=== PATIENT | female | born 1990 | race Caucasian/White ===

== ENCOUNTER → 2018-09-02 10:22 | Outpatient (CLI) | payer MEDICAID, SELFPAY ==
[2018-09-02 09:07] VITALS: BMI 32.4
[2018-09-02 11:18] LABS: Absolute Lymphocyte Count 1.47 X10^3/ul (0.83-4.51); Absolute Neutrophil Count 5.7 X10^3/uL (2.0-7.7); Basophil# 0.03 X10^3/uL; Basophil% 0.4 % (0-1); Eosinophils% 1.3 % (0-5); Hematocrit 38.1 % (37-47); Hemoglobin 12.9 g/dl (12.0-15.0); Lymphocyte # 1.47 X10^3/ul (4.0); Lymphocyte % 19.3 % (19-41); Mean Corp Hgb Conc 33.9 g/gl (32-36); Mean Corpuscular Hgb 26.1 pg (27.0-32.0); Mean Platelet Vol. 12.5 fl (6.2-12.0); Monocyte# 0.35 X10^3/uL; Monocyte% 4.6 % (0-10); Neutrophil # 5.65 X10^3/uL (2.7-7.7); Neutrophil % 74.3 % (47-70); POSITIVE COUNT NO; POSITIVE DIFFERENTIAL NO; POSITIVE MORPHOLOGY NO; Platelet Count 215 K/mm3 (150-450); RBC Distribution Width CV 14.8 % (11.6-14.6); RBC Distribution Width SD 40.5 fl (35.1-43.9); Red Blood Count 4.95 M/mm3 (4.2-5.4); White Blood Count 7.6 K/mm3 (4.4-11.0)
[2018-09-02 11:36] LABS: Glucose Challenge Gest 1H 50g 108 mg/dL (70-140)
[2018-09-02 12:30] LABS: HIV - WCH Non-Reactive (Nonreactive); Rubella IgG 86.2 IU/mL
[2018-09-02 16:30] LABS: Chlamydia Trachomatis by PCR Negative (Negative); Neisserai gonorrhoeae by PCR Negative (Negative); Probe Check PASS; Sample Adequacy Control PASS; Specimen Processing Control PASS
[2018-09-03 11:07] LABS: HEPATITIS B SURFACE AG Negative (Negative)
[2018-09-04 10:07] LABS: HPV Reflexed? NOT INDICATED
[2018-09-05 01:43] LABS: Rapid Plasmin Reagin (RPR) NONREACTIVE (NONREACTIVE)
== END ==
PROVIDERS: Visit Provider Obstetrics & Gynecology
DX: Z34.80 Encounter for supervision of other normal pregnancy, unspecified trimester (principal)
CPT/HCPCS: 36415; 82950; 85025; 86592; 86703; 86762; 86850; 86900; 87086; 87340; 87491; 87591; 87624; 88175; G0145

== ENCOUNTER → 2018-10-07 | Outpatient (CLI) | payer MEDICAID, SELFPAY ==
[2018-10-07 13:46] VITALS: BMI 32.4
== END | disposition home or self-care (01) ==
PROVIDERS: Referring Provider Obstetrics & Gynecology; Visit Provider Obstetrics & Gynecology
DX: Z34.82 Encounter for supervision of other normal pregnancy, second trimester (principal)
CPT/HCPCS: 36415; 86850

== ENCOUNTER → 2018-11-03 15:21 | Outpatient (CLI) | payer MEDICAID, SELFPAY ==
[2018-11-03 15:13] VITALS: BMI 32.4
== END ==
PROVIDERS: Referring Provider Obstetrics & Gynecology; Visit Provider Obstetrics & Gynecology
DX: Z36.9 Encounter for antenatal screening, unspecified (principal)
CPT/HCPCS: 36415

== ENCOUNTER → 2019-01-01 10:22 | Outpatient (CLI) | payer MEDICAID, SELFPAY ==
[2019-01-01 09:44] VITALS: BMI 32.4
[2019-01-01 11:23] LABS: Absolute Lymphocyte Count 1.59 X10^3/uL (0.83-4.51); Absolute Neutrophil Count 7.3 X10^3/uL (2.0-7.7); Basophil# 0.05 X10^3/uL; Basophil% 0.5 % (0-1); Eosinophil# 0.14 X10^3/uL; Eosinophils% 1.5 % (0-5); Hemoglobin 10.6 g/dL (12.0-15.0); Lymphocyte # 1.59 X10^3/ul (4.0); Lymphocyte % 16.5 % (19-41); Mean Corp Hgb Conc 33.1 g/dL (32-36); Mean Corpuscular Hgb 29.1 pg (27.0-32.0); Mean Corpuscular Volume 87.9 fL (81-99); Mean Platelet Vol. 11.9 fl (6.2-12.0); Monocyte# 0.51 X10^3/uL; Monocyte% 5.3 % (0-10); NRBC Flagged by Analyzer 0 % (0-5); Neutrophil % 75.7 % (47-70); Platelet Count 184 K/mm3 (150-450); RBC Distribution Width CV 13.9 % (11.6-14.6); RBC Distribution Width SD 45.1 fl (35.1-43.9); Red Blood Count 3.64 M/mm3 (4.2-5.4); White Blood Count 9.6 K/mm3 (4.4-11.0)
[2019-01-01 11:26] LABS: Glucose Challenge Gest 1H 50g 109 mg/dL (70-140)
== END ==
PROVIDERS: Referring Provider Obstetrics & Gynecology; Visit Provider Obstetrics & Gynecology
DX: Z34.92 Encounter for supervision of normal pregnancy, unspecified, second trimester (principal); Z3A.26 26 weeks gestation of pregnancy
CPT/HCPCS: 36415; 82950; 85025

== ENCOUNTER → 2019-03-11 15:24 | Outpatient (CLI) | payer MEDICAID, SELFPAY ==
[2019-03-11 13:32] VITALS: BMI 32.4
== END ==
PROVIDERS: Visit Provider Obstetrics & Gynecology
DX: Z34.80 Encounter for supervision of other normal pregnancy, unspecified trimester (principal)
CPT/HCPCS: 87081

== ENCOUNTER 2019-04-12 06:56 | Inpatient (IN) | payer MEDICAID, SELFPAY ==
[2019-04-10 09:38] VITALS: BMI 32.4
[2019-04-12 07:16] VITALS: BMI 32.8
[2019-04-12] MEDS: Lactated Ringers 1,000 ML 50 ML IV (07:35)
[2019-04-12] MEDS: Oxytocin 30 units/NS 500 ml 30 UNITS/500 ML IV.SOLN IV (07:53)
[2019-04-12 07:54] LABS: Absolute Lymphocyte Count 2.35 X10^3/uL (0.83-4.51); Absolute Neutrophil Count 8.9 X10^3/uL (2.0-7.7); Basophil# 0.06 X10^3/uL; Basophil% 0.5 % (0-1); Eosinophil# 0.16 X10^3/uL; Eosinophils% 1.3 % (0-5); Hematocrit 34.9 % (37-47); Hemoglobin 11.9 g/dL (12.0-15.0); Lymphocyte # 2.35 X10^3/ul (4.0); Lymphocyte % 19.3 % (19-41); Mean Corp Hgb Conc 34.1 g/dL (32-36); Mean Corpuscular Hgb 29.4 pg (27.0-32.0); Mean Corpuscular Volume 86.2 fL (81-99); Mean Platelet Vol. 11.9 fl (6.2-12.0); Monocyte# 0.65 X10^3/uL; Monocyte% 5.3 % (0-10); NRBC Flagged by Analyzer 0 % (0-5); Neutrophil # 8.89 X10^3/uL (2.7-7.7); Neutrophil % 72.9 % (47-70); Platelet Count 168 K/mm3 (150-450); RBC Distribution Width CV 14.6 % (11.6-14.6); Red Blood Count 4.05 M/mm3 (4.2-5.4); White Blood Count 12.2 K/mm3 (4.4-11.0)
--- NOTE | 2019-04-12 08:57 | HP.PCM_ITS ---
- Problem List (1) Encounter for induction of labor Status: Acute (2) Post-dates Status: Acute (3) Anemia affecting Status: Acute Qualifiers: Comment: Start iron. CBC at 36 weeks (4) Anxiety during Status: Acute Comment: celexasarataril, encouraged counseling (5) Status: Acute Qualifiers: Comment: Daron low risk, neg horizon, afp negative. Anatomy US normal. (6) Supervision of other normal Status: Acute Comment: PRR NAVI 04/05/2019 girl PC Mj Spouse Hesham (dght Sue) History and Physical Date of Admission: 04/12/19 Intake Vital Signs 04/10/19 BMI 32.4 04/10/19 Height 5 ft 5 in 04/10/19 Weight: 200 lb 04/10/19 BMI 33.3 04/10/19 BP 122/80 H Intake Visit Reasons: 40 WK OB Chief Complaint: est ob Surgical Territory Manager Required: No Is patient in pain?: No Allergies No Known Allergies Allergy (Verified 04/10/19 09:37) Medications dextroamphetamine-amphetamine 20 mg tablet 20 mg PO DAILY 09/02/18 history Confirmed 04/10/19 [id number] fum 28 mg iron-folate no.6 1 mg-dha 300 mg capsule 1 cap PO .daily #90 cap 11/11/18 Rx Confirmed 04/10/19 ranitidine HCl 150 mg tablet 150 mg PO BID #60 tab 02/11/19 Rx Confirmed 04/10/19 promethazine 12.5 mg tablet 12.5 mg PO Q6H PRN #60 tab 04/03/19 Rx Confirmed 04/10/19 Last Menstral Period: 06/29/18 Zika: Zika virus screening: Negative : No PFSH PFSH Medical History ADD (attention deficit disorder) (Acute) Anxiety (Acute) Endometriosis (Acute) Sciatic nerve pain (Acute) Surgical History H/O wisdom tooth extraction (Resolved) Family History Mother Diabetes Hypertension Father Hypertension Social History (Updated 04/10/19 @ 10:08 by Chelle Pete MD) adopted: No household members: family housing: house number of children: 2 current occupational status: unemployed current occupational exposures/hazards: No pets and animals: No history of recent travel: No sexually active: Yes Smoking Status: Never smoker second hand exposure: No alcohol intake: current alcohol intake frequency: a few times a week details: not since finding out she was substance use type: does not use seatbelt use: always do you feel safe at home: Yes additional social history: Hesham- Finance (dg-) Pregancy History 2 Elective abortions Hx Para 1 Spontaneous abortions Hx # Term Pregnancies 1 Ectopic pregnancies Hx # Pregnancies Multiple births # of living children 1 Past Pregnancies Del. Date Name GA/Weeks Outcome Route Bth Weight Infant Gen Labor Lgth Anesthesia Del Locatn Provider FOB 06/29/16 Mj 41 live - full term 8lbs 6oz Female 2 6hrs pushed 2 hrs epidural [facility] Dr. Cherry Hesham Delivery Date: 06/29/16 On 09/02/18 @ 09:26 Lashanda Hannah Induced- post dates HPI 40 WK OB: Details: RICARDO ROLLINS is a 29 year old @41 weeks presents for induction of labor. She denies any vaginal bleeding or loss of fluid admits good movement and has had a that is been complicated by postdates. OB Visit NAVI Calculator Estimated Delivery Date Method Current WG Current Estimate 04/05/19 LMP (Certain) 40w 5d Expected Delivery Route/Plan Labor Preferences- labor support person: Hesham pain management options preferred: epidural cut cord/dad catch: yes : yes PP control planned: discussed possible routes of delivery and associated risks: special requests: Specific Issue/Plans flu vaccine: given tdap vaccine: given rhogam: na LARC form signed: yes Problem list reviewed and updated with the most current plan of care details and appropriate orders placed. Relevant counseling for the gestational age provided. Continue routine care and follow up unless otherwise noted in visit notes/problem list details Initial Weight: 195 lb Date EGA Weight BP Urine Prot Glucose FHR FuHt Pres Mov CTX Dilation Effaced St Visit Note 10/07/18 14w 2d 189 lb (-6 lb) 114/72 Trace Negative 160 no vb cramping 11/03/18 18w 1d 189 lb (-6 lb) 120/76 Negative Negative 150 18 no vb lof cramping afp ordered 12/03/18 22w 3d 191 lb (-4 lb) 120/80 Negative Negative 150 23 no vb lof 01/01/19 26w 4d 194 lb (-16 oz) 100/62 150 27 no vb lof cbc gct tdap flu vaccine 01/28/19 30w 3d 199 lb 4 oz (+4 lb 4 oz) 110/82 Negative Negative 153 30 Good FM. No VB, LOF. 02/11/19 32w 3d 192 lb (-3 lb) 131/69 Negative Negative 150 33 no vb lof good fm no regular ctx 02/25/19 34w 3d 193 lb 6 oz (-1 lb 10 oz) 122/79 Negative Negative 141 35 Good FM. No VB, LOF. 03/11/19 36w 3d 195 lb 4 oz (+4 oz) 115/80 Negative 1000 g/dL 140 36 strat anti anxiety medications- no vb lof good fm no reg ctx 03/19/19 37w 4d 198 lb 4 oz (+3 lb 4 oz) 120/80 Negative Negative 148 37 Cephalic 1 50 -3 NO reg CTX. No Vb, LOF. G ood FM 03/26/19 38w 4d 198 lb 6 oz (+3 lb 6 oz) 123/81 Negative Negative 145 38 Cephalic 1.5 SM- no vb lof good fm no reg ctx 04/03/19 39w 5d 199 lb (+4 lb) 115/77 Negative Negative 140 40 Cephalic 2.5 50 -2 SM- no vb lof good fm no regular ctx. 04/10/19 40w 5d 200 lb (+5 lb) 122/80 140 40 Cephalic 3 60 -2 SM- no vb lof good fm no regular ctx discuss IOL 41 weeks Notes Visit Date: 04/10/19 ??No visit notes to display Visit Date: 04/03/19 ??No visit notes to display Visit Date: 03/26/19 ??No visit notes to display Visit Date: 03/19/19 ??No visit notes to display Visit Date: 03/11/19 ??No visit notes to display Visit Date: 02/25/19 ??Good FM. No VB, LOF. ??HIRAM Keita on 02/25/19 Visit Date: 02/11/19 ??no vb lof good fm no regular ctx ??Chelle Pete MD on 02/11/19 Visit Date: 01/28/19 ??Good FM. No VB, LOF. ??HIRAM Keita on 01/28/19 Visit Date: 01/01/19 ??no vb lof cbc gct tdap flu vaccine ??Chelle Pete MD on 01/01/19 Visit Date: 12/03/18 ??no vb lof ??Chelle Pete MD on 12/03/18 Visit Date: 11/03/18 ??no vb lof cramping afp ordered ??Chelle Pete MD on 11/03/18 Visit Date: 10/07/18 ??no vb cramping ??Chelle Pete MD on 10/07/18 ACOG First Trimester First Trimester: Desire for , Alcohol, Tobacco Cessation, Illicit/Recreational Drug/Substance Use, Intimate Partner Violence, Barriers to care, Unstable Housing, Communication Barriers, Environmental/Work Hazards, Anticipated Course of Care, Toxoplasmosis Precations, Use of Any medications, Sexual activity, Exercise, Dental Care, Sauna/Hot tub use, Seat Belt use, Childbirth classes/Hospital facilities, , Travel, Indications for US and Screening for Aneuploidy Second Trimester Second Trimester: Signs and Symptoms of Labor, Selecting a care provider, Reproductive Life Planning, Care Planning, Tobacco Cessation, Depression/Anxiety and Intimate Partner Violence Third Trimester Third Trimester: Pain Management Plans, Labor support person(s), Immediate Larc, Movement Monitoring and Labor Signs Diagnostics Diagnostics Diagnostics Antibody Screen NEGATIVE 10/07/18 Glucose 1 Hr 50 gm 109 mg/dL (70-140) 01/01/19 Hgb 10.6 g/dL (12.0-15.0) L 01/01/19 Hct 32.0 % (37-47) L 01/01/19 Details: HIV: Urine Culture: Sequential Screen: NIPT Screen: ROS Const Reports system reviewed and no additional complaints, except as docu Card Reports system reviewed and no additional complaints, except as docu Resp Reports system reviewed and no additional complaints, except as docu GI Reports system reviewed and no additional complaints, except as docu, Reports nausea Reports system reviewed and no additional complaints, except as docu Musc Reports system reviewed and no additional complaints, except as docu Exam Const General: cooperative, healthy appearing, comfortable, anxious [facility] Head: normal to inspection Nose: external nose normal Face and sinus: normal facial exam Neck Neck: normal visual inspection, full ROM, no lymphadenopathy Thyroid: thyroid normal Chest Chest palpation & inspection: normal inspection of the chest Resp Effort & Inspection: normal respiratory effort GI Inspection: normal to inspection Palpation: soft, other (gravid uterus) Other: infant vertex and appropriate size for gestational age Other: Cervical Exam: Extrem General: pedal edema Assessment & Plan Problems 1. Anxiety during O99.340; F41.9 2. Anemia affecting in second trimester O99.012 3. Supervision of other normal Z34.80 4. 40 weeks gestation of Z3A.40 Patient presents IOL, plan management for , pitocin/AROM when able. Pain management: Plans epidural. GBS negative. Management of any complications: None I have reviewed the [facility] and made any clinically relevant updates. Orders Orders: POC Urinalysis 2 Dip (Clinic) Today Coding Level of Care Code Off vis,est,level 4 Diagnoses Anxiety during O99.340; F41.9 Anemia affecting in second trimester O99.012 ??Trimester: second trimester Supervision of other normal Z34.80 40 weeks gestation of Z3A.40 ??Weeks of gestation: 40 weeks
[2019-04-12] MEDS: Lactated Ringers 500 ML 999 ML IV (14:14)
[2019-04-12] MEDS: Ondansetron 4 MG/2 ML Vial IV (14:19)
[2019-04-12] MEDS: 0.9% Saline Lock 10 ML Syringe IV ×2 (14:19→17:45)
[2019-04-12] MEDS: fentaNYL-bupivacaine (epidural) 100 ML BAG EPIDURAL (15:05)
[2019-04-12] MEDS: Lactated Ringers 1,000 ML 200 ML IV (15:53)
[2019-04-12] MEDS: proCHLORPERazine 10 MG/2 ML Vial IV (17:45)
[2019-04-12] MEDS: Oxytocin 30 units/NS 500 ml 30 UNITS/500 ML IV.SOLN 334 UNITS IV (18:25)
--- NOTE | 2019-04-12 18:33 | PCM.OPRPT ---
Problem List (1) Encounter for induction of labor Status: Acute (2) Post-dates Status: Acute (3) Anemia affecting Status: Acute Qualifiers: Comment: Start iron. CBC at 36 weeks (4) Anxiety during Status: Acute Comment: celexa, vistaril, encouraged counseling (5) Status: Acute Qualifiers: Comment: Daron low risk, neg horizon, afp negative. Anatomy US normal. (6) Supervision of other normal Status: Acute Comment: PRR NAVI 04/05/2019 girl PC Mj Spouse Hesham (dght Sue) Vaginal Delivery 41 week IOL Method of Induction: Pitocin Amniotic Membrane Rupture Type: Artificial Amniotic Fluid Description: Clear Final NAVI: 04/05/19 Gestational age: 41 Weeks and 0 Days Date of Procedure: 04/12/19 Pre-Operative Diagnosis: iol postdate Post-Operative Diagnosis: same Surgery/ Procedure Performed: Spontaneous Vaginal Delivery Type of Anesthesia: Epidural Description of Procedure: Patient began pushing and delivered the head in the CARMENZA presentation. The head was delivered atraumatically . The anterior and posterior shoulders delivered without complication followed by the rest of the and the infant was placed on the maternal abdomen. Delayed cord clamping was employed for approximately 60 seconds. Cord was clamped and cut and gentle traction was applied to the cord and the placenta delivered spontaneously immediately following it was noted to be intact with three-vessel cord. The perineum and vagina were inspected and noted to have no laceration. EBL was 100 cc. Patient and infant tolerated delivery well. Presentation: CARMENZA Placental Delivery Description: Spontaneous Placenta Disposition: [facility] Cord Vessel Description: 3 Vessels Cord Entanglement: None Estimated Blood Loss: 100 Infant A gender: Female Episiotomy Description: None Laceration: None Medications given after delivery: IV Pitocin Complications: None Multi Select Codes - Urinary/Genital Urinary/Genital CPT Codes: 28499 Vaginal Delivery+ Care([facility])
[2019-04-12] MEDS: Naproxen 250 MG Tablet 500 MG PO (22:16)
[2019-04-12 23:37] VITALS: BP 116/70; PULSE 81; RESP 16; TEMP 37.2
[2019-04-13 03:28] VITALS: BP 102/58; PULSE 74; RESP 16; TEMP 36.4
[2019-04-13] MEDS: Acetaminophen 500 MG Tablet 1000 MG PO ×2 (03:41→12:09)
--- NOTE | 2019-04-13 03:55 | NURSING ---
This RN in room during 0300 rounding. Pt laughing with this RN and significant other made comment You're awful giddy and laughing, I wish you'd just shut up. Pt replies Oh shut up, I'm going to slap you.
--- NOTE | 2019-04-13 05:00 | NURSING ---
report received from anette VALERA . this RN to assume care of pt at this time.
--- NOTE | 2019-04-13 08:29 | PCM.PN.OB ---
Patient Problems: Active and Suspected Problems (Last Reviewed 04/10/19 @ 09:37 by Marcella Arellano) Encounter for induction of labor (Acute) Post-dates (Acute) Subjective: Doing well, no complaints.Pain controlled. Denies CP, SOB, N,V. Ambulating well, tolerating po. Lochia moderate, going well. - Physical Exam Vitals/I&O's: Vital Signs Temp Pulse Resp BP 97.6 F L 74 16 102/58 L 04/13/19 03:28 04/13/19 03:28 04/13/19 03:28 04/13/19 03:28 Oxygen Delivery Method Room Air Weight: 197 lb 8.547 oz Body Mass Index (BMI) 32.8 Intake and Output for Last 24 Hours 04/11/19 04/12/19 04/13/19 23:59 23:59 23:59 Intake Total 2360.29 / 2360.29 Output Total 950 / 950 250 / 250 Balance 1410.29 / 1410.29 -250 / -250 General: Alert, Oriented x3 Abdomen: Soft, Non Tender, - - FF below U Laboratory Results 04/12/19 07:36: Blood Type A POSITIVE, Antibody Screen NEGATIVE Current Medications Acetaminophen (Tylenol) 1,000 mg PO Q8H PRN PRN PRN Reason: Pain Score 1-3/10 Last Admin: 04/13/19 03:41 Dose: 1,000 mg Documented by: Bisacodyl (Dulcolax) 10 mg RECTAL UD PRN PRN Reason: If no BM Dibucaine (Dibucaine) 1 applic TOPICAL TID PRN PRN; Protocol PRN Reason: Discomfort Hydrocortisone (Hytone) 1 applic TOPICAL TID PRN PRN; Protocol PRN Reason: Discomfort Methylergonovine Maleate (Methergine) 0.2 mg IM X1 PRN PRN Reason: Excess bleeding/uterine atony Naproxen (Naprosyn) 500 mg PO Q8H PRN PRN PRN Reason: Pain Score 1-3/10 Last Admin: 04/12/19 22:16 Dose: 500 mg Documented by: Ondansetron HCl (Zofran) 4 mg IV Q4H PRN PRN PRN Reason: Nausea Oxycodone HCl (Oxyir) 5 - 10 mg PO Q4H PRN PRN PRN Reason: Pain Score 4-10/10 Senna/Docusate Sodium (Senokot-S, Ginger-Colace) 1 - 2 tablet PO DAILY PRN PRN PRN Reason: Constipation Simethicone (Mylicon) 80 mg PO PCHS PRN PRN Reason: Indigestion/Stomach pain Sodium Chloride () 5 - 15 ml IV UD PRN PRN Reason: SALINE FLUSH Medical Necessity - Tobacco Use Smoking Status: Never smoker Assessment/Plan All Active Problems (Last Reviewed 04/10/19 @ 09:37 by Marcella Arellano) Encounter for induction of labor (Acute) Post-dates (Acute) Anxiety during (Acute) Anemia affecting (Acute) Supervision of other normal (Acute) (Acute) Subchorionic hemorrhage in first trimester (Resolved) s/p PPD # 1 1. routine post delivery care 2. breast feeding- support given 3. rh positive 4. rubella immune 5. Home today
--- NOTE | 2019-04-13 08:30 | DCINST_ITS ---
Additional Instructions: If you experience any of the following, contact your healthcare provider. * Bleeding that soaks a pad every hour for 2 hours * Fever 100.4 or higher * Unrelieved incision or abdominal pain * Swelling, redness, discharge or bleeding from your incision or episiotomy site * Your incision begins to separate * Problems urinating (including inability to urinate or burning while urinating). * Visual changes * Severe headache * Flu-like symptoms * Pain or redness in one of both of your breasts * Pain, warmth, tenderness or swelling in your legs, especially the calf area * Frequent nausea and vomiting * Symptoms of depression or anxiety If you experience any of the following, call 911 or go to the nearest Emergency Room. * Chest pain * Problems breathing * Seizure activity * Partial or complete paralysis of a body part, slurred speech, weakness or drooping of the face, or a sudden inability to walk or hold your balance Allergies/Adverse Reactions: Allergies No Known Allergies Allergy (Verified 04/12/19 07:58) Medications to take at Discharge dextroamphetamine-amphetamine 20 mg tablet 20 mg PO BID 09/02/18 promethazine 12.5 mg tablet 12.5 mg PO Q6H PRN #60 tab 04/03/19 [Prenate DHA] 1 cap PO .daily 04/12/19 Ranitidine HCl 150 mg PO BID 04/12/19 Primary Care Physician: JACQUIE CALHOUN [Other] Test Results: Test results from this visit will be discussed in further detail at your follow- up appointment, if applicable.
--- NOTE | 2019-04-13 08:30 | PCM.DCVAG ---
Additional Instructions: If you experience any of the following, contact your healthcare provider. Bleeding that soaks a pad every hour for 2 hours Fever 100.4 or higher Unrelieved incision or abdominal pain Swelling, redness, discharge or bleeding from your incision or episiotomy site Your incision begins to separate Problems urinating (including inability to urinate or burning while urinating). Visual changes Severe headache Flu-like symptoms Pain or redness in one of both of your breasts Pain, warmth, tenderness or swelling in your legs, especially the calf area Frequent nausea and vomiting Symptoms of depression or anxiety If you experience any of the following, call 911 or go to the nearest Emergency Room. Chest pain Problems breathing Seizure activity Partial or complete paralysis of a body part, slurred speech, weakness or drooping of the face, or a sudden inability to walk or hold your balance Allergies/Adverse Reactions: Allergies No Known Allergies Allergy (Verified 04/12/19 07:58) Medications to take at Discharge dextroamphetamine-amphetamine 20 mg tablet 20 mg PO BID 09/02/18 promethazine 12.5 mg tablet 12.5 mg PO Q6H PRN #60 tab 04/03/19 [Prenate DHA] 1 cap PO .daily 04/12/19 Ranitidine HCl 150 mg PO BID 04/12/19 Primary Care Physician: JACQUIE CALHOUN [Other] Test Results: Test results from this visit will be discussed in further detail at your follow-up appointment, if applicable.
[2019-04-13] MEDS: Naproxen 250 MG Tablet 500 MG PO ×2 (09:24→18:37)
[2019-04-13 09:32] VITALS: BP 118/75; PULSE 81; RESP 16; TEMP 36.4; O2SAT 97
[2019-04-13 12:05] VITALS: BP 119/85; PULSE 86; RESP 14; TEMP 36.8; O2SAT 98
[2019-04-13 16:45] VITALS: BP 119/76; PULSE 78; RESP 16; TEMP 36.7
== END 2019-04-13 20:40 | disposition home or self-care (01) | DRG 560 ==
PROVIDERS: Admitting Provider Obstetrics & Gynecology; Visit Provider Obstetrics & Gynecology
DX: O48.0 Post-term pregnancy (principal); Z3A.41 41 weeks gestation of pregnancy; O99.02 Anemia complicating childbirth; D64.9 Anemia, unspecified; Z37.0 Single live birth
CPT/HCPCS: 59025; 59050; 85025; 86850; 86900; 86901; 99218; J7120; A4216; G0378; J2405

== ENCOUNTER 2019-07-18 16:50 | Observation (INO) | payer MEDICAID, SELFPAY ==
[2019-05-29 09:55] VITALS: BMI 32.8
[2019-07-18 16:51] VITALS: BP 152/97; PULSE 75; RESP 28; TEMP 35.9; O2SAT 99; BMI 30.7
--- NOTE | 2019-07-18 17:06 | ED.VIS.GEN ---
History of Present Illness Chief Complaint: Abd Pain Informant: Patient Onset: Today Narrative: Patient presents the emergency department with a upper abdominal pain radiating posteriorly bilaterally. She notes associated nausea and vomiting. Symptoms began around noon after she had an original chicken sandwich and [place]ian fries. She is by several months. She states she was having GERD-like symptoms during and was taking Zantac. However she is continued to have episodes like this but this is the most severe. She describes a bilious emesis. No history of gallbladder disease or pancreatitis. Patient is not breast-feeding. Past Medical History - Allergies and Home Meds Allergies/Adverse Reactions: Allergies No Known Allergies Allergy (Verified 07/18/19 16:51) Primary Care Physician: NOT,DEFINED [NON-STAFF] - Smoking Status: Never smoker - Family History Maternal Family History: Family History (Last Reviewed 05/29/19 @ 09:53 by Ev Jhaveri) Mother Diabetes Hypertension Father Hypertension Review of Systems General: Denies: Chills, Fever, Sweats Eyes: Denies: Visual changes - bilaterally, Diplopia ENT: Denies: Rhinorrhea, Sore throat Cardiovascular: Denies: Chest pain, Palpitations Respiratory: Denies: Dyspnea, Cough, Dyspnea on exertion Gastrointestinal: Reports: Abdominal pain, Nausea, Vomiting. Denies: Diarrhea, Melena, Hematochezia Genitourinary: Denies: Dysuria, Hematuria, Frequency Musculoskeletal: Denies: Back pain, Extremity Pain Skin: Denies: Rash, Wounds Neurological: Denies: Headache, Weakness, Numbness Physical Exam Vital Signs/Narrative: Vital Signs Temp Pulse Resp BP Pulse Ox 07/18/19 16:51 96.7 F L 75 28 H 152/97 H 99 Inital Vital Signs reviewed: Yes General: Well nourished, Well developed, No Acute Distress, - - Patient appears very uncomfortable. Head: Normocephalic, Atraumatic Eyes: Perrl, EOMI ENT: Moist mucous membranes, No rhinorrhea Neck: Supple, Nontender Cardiovascular: Regular rate, Regular rhythm, No murmurs Respiratory: No distress, CTA bilaterally, Chest nontender Abdomen: Soft, Nondistended, Normal bowel sounds, Tender, Guarding, Rebound tenderness Back: Nontender, Normal Inspection Extremities: Nontender, No edema Skin: Normal color, No rash Neurological: Alert, Oriented x3, Cranial nerves II-XII grossly intact, Normal Strength, Normal Sensation Psychological: Normal affect, Normal Mood Diagnostic/Tx/Re-eval Laboratory Last Values WBC 10.8 K/mm3 (4.4-11.0) 07/18/19 17:19 RBC 4.95 M/mm3 (4.2-5.4) 07/18/19 17:19 Hgb 14.0 g/dL (12.0-15.0) 07/18/19 17:19 Hct 42.9 % (37-47) 07/18/19 17:19 MCV 86.7 fL (81-99) 07/18/19 17:19 MCH 28.3 pg (27.0-32.0) 07/18/19 17: MCHC 32.6 g/dL (32-36) 07/18/19 17: RDW Std Deviation 39.7 fl (35.1-43.9) 07/18/19 17: RDW Coeff of Yue 12.5 % (11.6-14.6) 07/18/19: Plt Count 242 K/mm3 (150-450) 07/18/19 17:19 MPV 11.9 fl (6.2-12.0) 07/18/19 17: Immature Gran % (Auto) 0.300 % (0.0-0.9) 07/18/19 17:19 Neut % (Auto) 78.7 % (47-70) H 07/18/19 17:19 Lymph % (Auto) 13.7 % (19-41) L 07/18/19 17: [place] % (Auto) 4.6 % (0-10) 07/18/19 17:19 Eos % (Auto) 2.0 % (0-5) 07/18/19 17:19 Baso % (Auto) 0.7 % (0-1) 07/18/19 17:19 Absolute Neuts (auto) 8.5 X10^3/uL (2.0-7.7) H 07/18/19 17:19 Absolute Lymphs (auto) 1.47 X10^3/uL (0.83-4.51) 07/18/19 17:19 Nucleated RBC % 0 % (0-5) 07/18/19 17:19 Sodium 141 mmol/L (136-145) 07/18/19 17:19 Potassium 3.5 mmol/L (3.5-5.1) 07/18/19 17:19 Chloride 108 mmol/L (98-107) H 07/18/19 17:19 Carbon Dioxide 26.0 mmol/L (21.0-32.0) 07/18/19 17:19 Anion Gap 7 (5-15) 07/18/19 17:19 BUN 8 mg/dL (7-18) 07/18/19 17:19 Creatinine 0.72 mg/dL (0.55-1.02) 07/18/19 17:19 Estim Creat Clear Calc 103.74 ml/min 07/18/19 17:19 Est GFR (MDRD) Af Amer 123 mL/min (>60) 07/18/19 17:19 Est GFR (MDRD) Non-Af 102 mL/min (>60) 07/18/19 17:19 BUN/Creatinine Ratio 11.1 RATIO (10-20) 07/18/19 17:19 Glucose 124 mg/dL (74-106) H 07/18/19 17:19 Calcium 9.2 mg/dL (8.5-10.1) 07/18/19 17:19 Total Bilirubin 1.50 mg/dL (0.20-1.00) H 07/18/19 17:19 Direct Bilirubin 0.98 mg/dL (0.00-0.30) H 07/18/19 17:19 AST 167 U/L (15-37) H 07/18/19 17:19 ALT 366 U/L (13-56) H 07/18/19 17:19 Alkaline Phosphatase 153 U/L (45-117) H 07/18/19 17:19 Total Protein 7.9 g/dL (6.4-8.2) 07/18/19 17:19 Albumin 4.2 g/dL (3.2-5.0) 07/18/19 17:19 Globulin 3.7 g/dL (2.2-4.2) 07/18/19 17:19 Amylase 35 U/L (25-115) 07/18/19 17:19 Lipase 126 U/L (73-393) 07/18/19 17:19 Serum , Qual NEGATIVE Negative 07/18/19 17:19 - Medical Decision Making Bedside ultrasound demonstrates cholelithiasis. No obvious pericholecystic fluid was noted. I could not visualize the CBD. IV was established basic labs drawn the patient received Dilaudid Zofran and IV fluids. Basic labs show an elevated bilirubin and direct bilirubin. Elevation of AST and ALT and alk phos. Lipase is normal. White count is normal. Patient's pain was significantly improved with Dilaudid and Zofran. I spoke with Dr. Wilson who came to the emergency department and is evaluated the patient. Plan is admission. ED Disposition - Plan for ED Patient: Disposition: Acute Care Hospital [facility] Diagnosis: Acute abdominal pain, Vomiting, Choledocholithiasis with obstruction Referrals: NOT,DEFINED [NON-STAFF] -
[2019-07-18] MEDS: 0.9% Normal Saline 1,000 ML 1000 ML IV (17:15)
[2019-07-18] MEDS: HYDROmorphone 1 MG/ML Syringe IV (17:16)
[2019-07-18] MEDS: Ondansetron 4 MG/2 ML Vial IV (17:16)
[2019-07-18 17:35] LABS: Absolute Lymphocyte Count 1.47 X10^3/uL (0.83-4.51); Absolute Neutrophil Count 8.5 X10^3/uL (2.0-7.7); Basophil# 0.07 X10^3/uL; Basophil% 0.7 % (0-1); Eosinophil# 0.22 X10^3/uL; Hematocrit 42.9 % (37-47); Lymphocyte # 1.47 X10^3/ul (4.0); Lymphocyte % 13.7 % (19-41); Mean Corp Hgb Conc 32.6 g/dL (32-36); Mean Corpuscular Hgb 28.3 pg (27.0-32.0); Mean Corpuscular Volume 86.7 fL (81-99); Mean Platelet Vol. 11.9 fl (6.2-12.0); Monocyte% 4.6 % (0-10); NRBC Flagged by Analyzer 0 % (0-5); Neutrophil # 8.47 X10^3/uL (2.7-7.7); Neutrophil % 78.7 % (47-70); Platelet Count 242 K/mm3 (150-450); RBC Distribution Width CV 12.5 % (11.6-14.6); RBC Distribution Width SD 39.7 fl (35.1-43.9); Red Blood Count 4.95 M/mm3 (4.2-5.4); White Blood Count 10.8 K/mm3 (4.4-11.0)
[2019-07-18 17:46] LABS: AST(SGOT) 167 U/L (15-37); Alanine Aminotransfer ALT/SGPT 366 U/L (13-56); Albumin, Serum 4.2 g/dL (3.2-5.0); Alkaline Phosphatase 153 U/L (45-117); Amylase 35 U/L (25-115); Anion Gap 7 (5-15); BUN 8 mg/dL (7-18); BUN/Creat Ratio 11.1 RATIO (10-20); Bilirubin, Direct 0.98 mg/dL (0.00-0.30); Calcium,Total 9.2 mg/dL (8.5-10.1); Chloride 108 mmol/L (98-107); Creatinine, Serum 0.72 mg/dL (0.55-1.02); EST Glomerular Filtration Rate 102 mL/min (>60); Est Glom Filt Rate - Afr Amer 123 mL/min (>60); Estimated Creatinine Clearance 103.74 ml/min; Globulin 3.7 g/dL (2.2-4.2); Glucose 124 mg/dL (74-106); Lipase 126 U/L (73-393); Potassium 3.5 mmol/L (3.5-5.1); Protein, Total 7.9 g/dL (6.4-8.2); Sodium Level 141 mmol/L (136-145)
[2019-07-18 18:01] LABS: Internal QC Validated? YES +Cl - CLEAR BKGD; Pregnancy, Serum, hCG Quali. NEGATIVE Negative
[2019-07-18 18:13] VITALS: BP 125/89; PULSE 91; RESP 12; TEMP 37; O2SAT 100; BMI 30.7
--- NOTE | 2019-07-18 18:33 | PCM.HP.STD ---
Problem List (1) Obstructive jaundice Status: Acute History of Present Illness Date of Admission: 07/18/19 The patient is a 29 year old F here with abdominal pain. The patient reports that she has been having epigastric and right upper quadrant pain radiating to the back. The patient reports that she had a baby 3 months ago. She had this kind of pain during her but not this frequently. She reports that she has had pain at least daily for the last week. She reports currently that her pain is subsided with pain medication but she was having nausea and vomiting today as well as pain in the right upper quadrant. She denies any cough fever or chills. Past Medical History Medical History: Medical History (Last Reviewed 05/29/19 @ 09:53 by Ev Jhaveri) ADD (attention deficit disorder) F98.8 Anxiety F41.9 Endometriosis N80.9 Sciatic nerve pain M54.30 Allergies No Known Allergies Allergy (Verified 07/18/19 16:51) Home Medications: Ambulatory Orders Medication Instructions Recorded dextroamphetamine-amphetamine 20 20 mg PO BID 09/02/18 mg tablet ALPRAZolam [Xanax] 0.5 mg PO DAILY 07/18/19 Surgical History: Surgical History (Last Reviewed 05/29/19 @ 09:53 by Ev Jhaveri) H/O wisdom tooth extraction K08.409 Smoking Status: Never smoker Tobacco Use: Non-smoker - *Family History Maternal Family History: Family History (Last Reviewed 05/29/19 @ 09:53 by Ev Jhaveri) Mother Diabetes Hypertension Father Hypertension Review of Systems Constitutional: Reports: Anorexia. Denies: Fever HEENT: Denies: Difficulty Swallowing Cardiovascular: Denies: Chest Pain Respiratory: Denies: Cough, Shortness of Breath Gastrointestinal: Reports: Abdominal Pain, Nausea, Vomiting Musculoskeletal: Denies: Joint Pain Skin: Denies: Dryness Psychiatric: Denies: Depression Hematologic/ Lymphatic: Denies: Anemia VTE Information - Inpt Only VTE Present on Admission: No VTE Mechan Device Prophylaxis: SCD's Patient Problems: Active and Suspected Problems (Last Reviewed 05/29/19 @ 09:53 by Ev Jhaveri) Choledocholithiasis (Acute) Obstructive jaundice (Acute) - Physical Exam Vitals/I&O's: Vital Signs Temp Pulse Resp BP Pulse Ox 98.6 F 91 12 125/89 H 100 04/25/20 18:13 07/18/19 18:13 07/18/19 18:13 07/18/19 18:13 07/18/19 18:13 Oxygen Delivery Method Room Air Weight: 185 lb Body Mass Index (BMI) 30.7 General: Alert, Oriented x3 Neck: No JVD Lungs: Normal air movement Cardiovascular: Regular rate, Regular Rhythm Abdomen: Soft, Non Tender, Non-Distended Laboratory Results 07/18/19 17:19: WBC 10.8, RBC 4.95, Hgb 14.0, Hct 42.9, MCV 86.7, MCH 28.3, MCHC 32.6, RDW Std Deviation 39.7, RDW Coeff of Yue 12.5, Plt Count 242, MPV 11.9, Immature Gran % (Auto) 0.300, Neut % (Auto) 78.7 H, Lymph % (Auto) 13.7 L, Bee % (Auto) 4.6, Eos % (Auto) 2.0, Baso % (Auto) 0.7, Absolute Neuts (auto) 8.5 H, Absolute Lymphs (auto) 1.47, Nucleated RBC % 0 07/18/19 17:19: Sodium 141, Potassium 3.5, Chloride 108 H, Carbon Dioxide 26.0, Anion Gap 7, BUN 8, Creatinine 0.72, Estim Creat Clear Calc 103.74, Est GFR (MDRD) Af Amer 123, Est GFR (MDRD) Non-Af 102, BUN/Creatinine Ratio 11.1, Glucose 124 H, Calcium 9.2, Total Bilirubin 1.50 H, Direct Bilirubin 0.98 H, AST 167 H, ALT 366 H, Alkaline Phosphatase 153 H, Total Protein 7.9, Albumin 4.2, Globulin 3.7, Amylase 35, Lipase 126 07/18/19 17:19: Serum , Qual NEGATIVE Current Medications Acetaminophen (Tylenol) 650 mg PO Q4H PRN PRN PRN Reason: Pain or Fever Alprazolam (Xanax) 0.5 mg PO DAILY [facility] Hydromorphone HCl (Dilaudid Inj) 0.5 - 1 mg IV Q2H PRN PRN PRN Reason: Pain Score 4-10/10 Sodium Chloride () 1,000 mls @ 100 mls/hr IV .Q10H [facility] Piperacillin Sod/Tazobactam (Sod 3.375 gm/ Sodium Chloride) 50 mls @ 12.5 mls/hr IV Q8 [facility] Non-Formulary Medication (Dextroamphetamine/Amphetamine [Dextroamp-Amphetamin 20 Mg Tab]) 20 mg PO BID [facility] Ondansetron HCl (Zofran) 4 mg IV Q6H PRN PRN PRN Reason: NAUSEA Assessment/Plan All Active Problems (Last Reviewed 05/29/19 @ 09:53 by Ev Jhaveri) Encounter for induction of labor (Acute) Post-dates (Acute) Choledocholithiasis (Acute) Obstructive jaundice (Acute) Anxiety during (Acute) Anemia affecting (Acute) Supervision of other normal (Acute) (Acute) Subchorionic hemorrhage in first trimester (Resolved) 29-year-old female with obstructive jaundice 1. The patient has been having right upper quadrant pain at least daily and episodes for the last week. She had a bedside ultrasound performed by the ER physician which showed cholelithiasis. The patient also has elevated liver enzymes. She likely has obstructive jaundice due to choledocholithiasis. I explained ERCP and laparoscopic cholecystectomy with cholangiogram to her in detail. I explained that I would admit her and keep her n.p.o. and antibiotics overnight. I will recheck labs in the morning. If her LFTs stayed the same or elevate more I will take her for ERCP tomorrow. If they begin to decrease I will take her for a laparoscopic cholecystectomy with cholangiogram either tomorrow or Saturday and perform ERCP subsequently if needed. Patient understands the plan and all questions were answered sufficiently. Nawaf Campbell MD Pager: [facility] [address] [place] [address], [address] [place] [address] Office:
[2019-07-18 18:42] VITALS: BP 125/89; PULSE 91; RESP 12; TEMP 37; O2SAT 100
[2019-07-18 19:47] VITALS: BP 123/72; PULSE 73; RESP 16; TEMP 36.6; O2SAT 97
[2019-07-18 19:56] VITALS: BMI 30.8
[2019-07-18 20:02] VITALS: BMI 30.9
[2019-07-18] MEDS: 0.9% Normal Saline 1,000 ML 100 ML IV (20:21)
[2019-07-18] MEDS: 0.9% Saline Lock 10 ML Syringe IV (20:21)
[2019-07-18] MEDS: ALPRAZolam 0.5 MG Tablet PO (20:30)
[2019-07-19 02:06] VITALS: BP 115/69; PULSE 81; RESP 16; TEMP 36.7; O2SAT 95
[2019-07-19] MEDS: 0.9% Normal Saline 1,000 ML 100 ML IV ×2 (05:58→15:49)
--- NOTE | 2019-07-19 06:00 | EKG12_ITS ---
Test Reason : PRE-OP Blood Pressure : / mmHG Vent. Rate : 074 BPM Atrial Rate : 074 BPM P-R Int : 164 ms QRS Dur : 094 ms QT Int : 392 ms P-R-T Axes : 058 072 042 degrees QTc Int : 435 ms Normal sinus rhythm with sinus arrhythmia Normal ECG Confirmed by KEILY RINCON, JUANY ([id number]), editorial assistant NATI BURRIS ([id number]) on 07/21/2019 9:40:55 AM Referred By: ASIA Confirmed By:JUANY MICHAUD MD
[2019-07-19 06:34] LABS: Absolute Lymphocyte Count 2.19 X10^3/uL (0.83-4.51); Absolute Neutrophil Count 5.1 X10^3/uL (2.0-7.7); Basophil# 0.05 X10^3/uL; Basophil% 0.6 % (0-1); Eosinophil# 0.34 X10^3/uL; Eosinophils% 4.2 % (0-5); Hematocrit 34.7 % (37-47); Hemoglobin 11.3 g/dL (12.0-15.0); Lymphocyte # 2.19 X10^3/ul (4.0); Lymphocyte % 26.9 % (19-41); Mean Corp Hgb Conc 32.6 g/dL (32-36); Mean Corpuscular Hgb 28.3 pg (27.0-32.0); Mean Corpuscular Volume 86.8 fL (81-99); Mean Platelet Vol. 11.8 fl (6.2-12.0); Monocyte% 6.1 % (0-10); NRBC Flagged by Analyzer 0 % (0-5); Neutrophil # 5.05 X10^3/uL (2.7-7.7); Platelet Count 194 K/mm3 (150-450); RBC Distribution Width CV 12.8 % (11.6-14.6); RBC Distribution Width SD 40.3 fl (35.1-43.9); White Blood Count 8.2 K/mm3 (4.4-11.0)
[2019-07-19 06:45] LABS: ALB/GLOB Ratio 1.1 RATIO (0.9-2.4); AST(SGOT) 96 U/L (15-37); Alanine Aminotransfer ALT/SGPT 270 U/L (13-56); Albumin, Serum 3.2 g/dL (3.2-5.0); Alkaline Phosphatase 119 U/L (45-117); Anion Gap 6 (5-15); BUN 7 mg/dL (7-18); BUN/Creat Ratio 11.3 RATIO (10-20); Chloride 110 mmol/L (98-107); Creatinine, Serum 0.62 mg/dL (0.55-1.02); EST Glomerular Filtration Rate 121 mL/min (>60); Est Glom Filt Rate - Afr Amer 147 mL/min (>60); Estimated Creatinine Clearance 115.61 ml/min; Globulin 2.9 g/dL (2.2-4.2); Glucose 82 mg/dL (74-106); Lipase 95 U/L (73-393); Potassium 3.5 mmol/L (3.5-5.1); Protein, Total 6.1 g/dL (6.4-8.2); Sodium Level 142 mmol/L (136-145)
--- NOTE | 2019-07-19 08:09 | PCM.PN.SRG ---
Patient Problems: Active and Suspected Problems (Last Reviewed 05/29/19 @ 09:53 by Ev Jhaveri) Obstructive jaundice (Acute) Acute abdominal pain (Acute) Vomiting (Acute) Choledocholithiasis with obstruction (Acute) Subjective: Patient is not having any pain today. - Physical Exam Vitals/I&O's: Vital Signs Temp Pulse Resp BP Pulse Ox 98.1 F 81 16 115/69 95 07/19/19 02:06 07/19/19 02:06 07/19/19 02:06 07/19/19 02:06 07/19/19 02:06 Oxygen Delivery Method Room Air Weight: 185 lb 3.013 oz Body Mass Index (BMI) 30.8 Intake and Output for Last 24 Hours 07/17/19 07/18/19 07/19/19 23:59 23:59 23:59 Intake Total 1000 / 1000 1411.67 / 1411.67 Output Total 350 / 350 Balance 1000 / 1000 1061.67 / 1061.67 General: Alert, Oriented x3 Neck: No JVD Lungs: Normal air movement Cardiovascular: Regular rate, Regular Rhythm Abdomen: Soft, Non Tender, Non-Distended Laboratory Results 07/18/19 17:19: WBC 10.8, RBC 4.95, Hgb 14.0, Hct 42.9, MCV 86.7, MCH 28.3, MCHC 32.6, RDW Std Deviation 39.7, RDW Coeff of Yue 12.5, Plt Count 242, MPV 11.9, Immature Gran % (Auto) 0.300, Neut % (Auto) 78.7 H, Lymph % (Auto) 13.7 L, [place] % (Auto) 4.6, Eos % (Auto) 2.0, Baso % (Auto) 0.7, Absolute Neuts (auto) 8.5 H, Absolute Lymphs (auto) 1.47, Nucleated RBC % 0 07/18/19 17:19: Sodium 141, Potassium 3.5, Chloride 108 H, Carbon Dioxide 26.0, Anion Gap 7, BUN 8, Creatinine 0.72, Estim Creat Clear Calc 103.74, Est GFR (MDRD) Af Amer 123, Est GFR (MDRD) Non-Af 102, BUN/Creatinine Ratio 11.1, Glucose 124 H, Calcium 9.2, Total Bilirubin 1.50 H, Direct Bilirubin 0.98 H, AST 167 H, ALT 366 H, Alkaline Phosphatase 153 H, Total Protein 7.9, Albumin 4.2, Globulin 3.7, Amylase 35, Lipase 126 07/18/19 17:19: Serum , Qual NEGATIVE 07/19/19 06:12: WBC 8.2, RBC 4.00 L, Hgb 11.3 L, Hct 34.7 L, MCV 86.8, MCH 28.3, MCHC 32.6, RDW Std Deviation 40.3, RDW Coeff of Yue 12.8, Plt Count 194, MPV 11.8, Immature Gran % (Auto) 0.200, Neut % (Auto) 62.0, Lymph % (Auto) 26.9, [place] % (Auto) 6.1, Eos % (Auto) 4.2, Baso % (Auto) 0.6, Absolute Neuts (auto) 5.1, Absolute Lymphs (auto) 2.19, Nucleated RBC % 0 07/19/19 06:12: Sodium 142, Potassium 3.5, Chloride 110 H, Carbon Dioxide 26.0, Anion Gap 6, BUN 7, Creatinine 0.62, Estim Creat Clear Calc 115.61, Est GFR (MDRD) Af Amer 147, Est GFR (MDRD) Non-Af 121, BUN/Creatinine Ratio 11.3, Glucose 82, Calcium 8.0 L, Total Bilirubin 1.10 H, AST 96 H, ALT 270 H, Alkaline Phosphatase 119 H, Total Protein 6.1 L, Albumin 3.2, Globulin 2.9, Albumin/Globulin Ratio 1.1, Lipase 95 Current Medications Acetaminophen (Tylenol) 650 mg PO Q4H PRN PRN PRN Reason: Pain Score 1-10/10/FEVER Alprazolam (Xanax) 0.5 mg PO DAILY [facility] Last Admin: 07/18/19 20:30 Dose: 0.5 mg Documented by: Hydromorphone HCl (Dilaudid Inj) 0.5 - 1 mg IV Q2H PRN PRN PRN Reason: Pain Score 4-10/10 Sodium Chloride () 1,000 mls @ 100 mls/hr IV .Q10H [facility] Last Admin: 07/19/19 05:58 Dose: 100 mls/hr Documented by: Piperacillin Sod/Tazobactam (Sod 3.375 gm/ Sodium Chloride) 50 mls @ 12.5 mls/hr IV Q8 [facility] Last Admin: 07/19/19 05:57 Dose: 12.5 mls/hr Documented by: Sodium Chloride () 250 mls @ 15 mls/hr IV .[id number] PRN PRN Reason: Saline Flush Last Infusion: 07/18/19 20:30 Dose: 0 mls/hr Documented by: Non-Formulary Medication (Dextroamphetamine/Amphetamine [Dextroamp-Amphetamin 20 Mg Tab]) 20 mg PO BID [facility] Ondansetron HCl (Zofran) 4 mg IV Q6H PRN PRN PRN Reason: NAUSEA Sodium Chloride () 10 - 40 ml IV UD PRN PRN Reason: SALINE FLUSH Last Admin: 07/18/19 20:21 Dose: 10 ml Documented by: Medical Necessity - Tobacco Use Smoking Status: Never smoker Tobacco Use: Non-smoker Assessment/Plan All Active Problems (Last Reviewed 05/29/19 @ 09:53 by Ev Jhaveri) Encounter for induction of labor (Acute) Post-dates (Acute) Obstructive jaundice (Acute) Acute abdominal pain (Acute) Vomiting (Acute) Choledocholithiasis with obstruction (Acute) Anxiety during (Acute) Anemia affecting (Acute) Supervision of other normal (Acute) (Acute) Subchorionic hemorrhage in first trimester (Resolved) 29-year-old female with obstructive jaundice 1. Patient's LFTs have decreased today and she is not having any pain. She likely passed her obstructing stone. Recommend clear liquid diet and n.p.o. after midnight and laparoscopic cholecystectomy with cholangiogram tomorrow to prevent further episodes of choledocholithiasis and evaluate the common bile duct for retained stones. I did discuss the possibility of ERCP subsequent to laparoscopic cholecystectomy if cholangiogram reveals stones. 2. I discussed the procedure in detail with the patient. I discussed the risks, benefits, and alternatives of the procedure. I discussed the risks including but not limited to bleeding, infection, injury to surrounding organs such as the liver, bile duct, bowels. I did discuss the possibility of having to convert to an open procedure as well as the possibility that if any injuries occurred this may necessitate further surgery at a tertiary care center. Nawaf Campbell MD Pager: [facility] [address] [place] [address], [address] [place] [address] Office:
[2019-07-19] MEDS: HYDROmorphone 1 MG/ML Syringe IV ×4 (08:54→20:04)
[2019-07-19 08:55] VITALS: BP 124/74; PULSE 74; RESP 16; TEMP 36.8; O2SAT 97
[2019-07-19 14:05] VITALS: BP 114/96; PULSE 76; RESP 18; TEMP 36.7; O2SAT 98
[2019-07-19] MEDS: ALPRAZolam 0.5 MG Tablet PO (15:54)
[2019-07-19] MEDS: Ondansetron 4 MG/2 ML Vial IV (15:56)
[2019-07-19 19:55] VITALS: BP 133/83; PULSE 87; RESP 18; TEMP 36.7; O2SAT 100
[2019-07-19] MEDS: Acetaminophen 325 MG Tablet 650 MG PO (20:04)
[2019-07-20] VITALS (12 sets, daily range): BP systolic 116–154; BP diastolic 74–103; PULSE 68–86; RESP 16–18; TEMP 36.2–37.2; O2SAT 93–100; BMI 30.8
--- NOTE | 2019-07-20 | GALL_PTH ---
PATIENT: RICARDO ROLLINS LOC: MS3 U#:[id number] AGE/SX: 29/F ROOM: MS314 RE07/18/[address]: Dr. Nawaf Campbell MD : 1990 BED: 1 DIS: 07/21/2019 SPEC #: [id number] RECD: 07/20/19 13:46 STATUS: JOSE G KLEINMeghana #: [id number] MEAGAN: 07/20/19 00:[address]: Nawaf Campbell DEPT: SURGICAL PATHOLOGY RECD BY: Josse Farah Tissues: Gallbladder, NOS Procedures: Surgery Specimen Level III HEADER OPERATION: Laparoscopic cholecystectomy with IOC PRE-OP DIAGNOSIS: Choledocholithiasis with obstruction TISSUE SUBMITTED: Gallbladder MICROSCOPIC DIAGNOSIS Gallbladder, cholecystectomy: Chronic cholecystitis and cholelithiasis. Reactive epithelial changes. A lymph node with reactive changes. SJ:vicente 07/22/19 MICROSCOPIC DESCRIPTION Slides are reviewed. GROSS DESCRIPTION Received is one container labeled with the patient's name and designated gallbladder. The specimen consists of a gallbladder measuring 9 cm in length and up to 4.5 cm in diameter. The external surface is pink-vanegas, smooth and glistening for the most part. Focally it is granular, hemorrhagic and contains cautery artifact. The gallbladder contains multiple mulberry orange stones measuring in aggregate 3 x 2.5 x 0.5 cm and 0.3 to 0.5 cm in greatest dimension. The mucosa is bile-stained and without any mass lesions. The gallbladder wall measures up to 0.3 cm in thickness. [employer] sections from the gallbladder and the cystic duct are submitted in one cassette. / SJ:rg 07/21/19 TC:5 [facility]: [id number]
[2019-07-20] MEDS: 0.9% Normal Saline 1,000 ML 100 ML IV ×2 (01:47→11:05)
[2019-07-20] MEDS: HYDROmorphone 1 MG/ML Syringe IV ×3 (06:38→18:55)
[2019-07-20] MEDS: Ondansetron 4 MG/2 ML Vial IV ×2 (06:54→20:45)
[2019-07-20 07:24] LABS: Absolute Lymphocyte Count 2.05 X10^3/uL (0.83-4.51); Absolute Neutrophil Count 3.6 X10^3/uL (2.0-7.7); Basophil# 0.06 X10^3/uL; Basophil% 0.9 % (0-1); Eosinophil# 0.34 X10^3/uL; Eosinophils% 5.2 % (0-5); Hemoglobin 12.5 g/dL (12.0-15.0); Lymphocyte # 2.05 X10^3/ul (4.0); Lymphocyte % 31.6 % (19-41); Mean Corp Hgb Conc 32.1 g/dL (32-36); Mean Corpuscular Hgb 28.7 pg (27.0-32.0); Mean Corpuscular Volume 89.4 fL (81-99); Mean Platelet Vol. 11.7 fl (6.2-12.0); Monocyte# 0.45 X10^3/uL; Monocyte% 6.9 % (0-10); NRBC Flagged by Analyzer 0 % (0-5); Neutrophil # 3.57 X10^3/uL (2.7-7.7); Neutrophil % 55.1 % (47-70); Platelet Count 213 K/mm3 (150-450); RBC Distribution Width CV 12.5 % (11.6-14.6); RBC Distribution Width SD 40.6 fl (35.1-43.9); Red Blood Count 4.36 M/mm3 (4.2-5.4); White Blood Count 6.5 K/mm3 (4.4-11.0)
[2019-07-20 08:14] LABS: ALB/GLOB Ratio 1.1 RATIO (0.9-2.4); AST(SGOT) 49 U/L (15-37); Alanine Aminotransfer ALT/SGPT 216 U/L (13-56); Albumin, Serum 3.5 g/dL (3.2-5.0); Alkaline Phosphatase 114 U/L (45-117); Anion Gap 3 (5-15); BUN 5 mg/dL (7-18); BUN/Creat Ratio 6.9 RATIO (10-20); Calcium,Total 8.3 mg/dL (8.5-10.1); Chloride 107 mmol/L (98-107); Creatinine, Serum 0.72 mg/dL (0.55-1.02); EST Glomerular Filtration Rate 101 mL/min (>60); Est Glom Filt Rate - Afr Amer 122 mL/min (>60); Estimated Creatinine Clearance 99.56 ml/min; Globulin 3.2 g/dL (2.2-4.2); Glucose 82 mg/dL (74-106); Potassium 3.8 mmol/L (3.5-5.1); Protein, Total 6.7 g/dL (6.4-8.2); Sodium Level 139 mmol/L (136-145)
[2019-07-20] MEDS: ALPRAZolam 0.5 MG Tablet PO (09:23)
[2019-07-20] MEDS: Acetaminophen 325 MG Tablet 650 MG PO ×2 (09:26→17:03)
--- NOTE | 2019-07-20 09:28 | PN.SURG_ITS ---
Patient Problems: Active and Suspected Problems (Last Reviewed 05/29/19 @ 09:53 by Ev Jhaveri) Obstructive jaundice (Acute) Acute abdominal pain (Acute) Vomiting (Acute) Choledocholithiasis with obstruction (Acute) Subjective: Patient is doing well this morning with no complaints. - Physical Exam Vitals/I&O's: Vital Signs Temp Pulse Resp BP Pulse Ox 98.2 F 74 18 116/74 97 07/20/19 02:04 07/20/19 02:04 07/20/19 02:04 07/20/19 02:04 07/20/19 02:04 Oxygen Delivery Method Room Air Weight: 185 lb 3.013 oz Body Mass Index (BMI) 30.8 Intake and Output for Last 24 Hours 07/18/19 07/19/19 07/20/19 23:59 23:59 23:59 Intake Total 1000 / 1000 3636.17 / 3636.17 1816.17 / 1816.17 Output Total 2250 / 2250 1875 / 1875 Balance 1000 / 1000 1386.17 / 1386.17 -58.83 / -58.83 General: Alert, Oriented x3 Lungs: Normal air movement Abdomen: Soft, Non-Distended Laboratory Results 07/20/19 06:55: WBC 6.5, RBC 4.36, Hgb 12.5, Hct 39.0, MCV 89.4, MCH 28.7, MCHC 32.1, RDW Std Deviation 40.6, RDW Coeff of Yue 12.5, Plt Count 213, MPV 11.7, Immature Gran % (Auto) 0.300, Neut % (Auto) 55.1, Lymph % (Auto) 31.6, [place] % (Auto) 6.9, Eos % (Auto) 5.2 H, Baso % (Auto) 0.9, Absolute Neuts (auto) 3.6, Absolute Lymphs (auto) 2.05, Nucleated RBC % 0 07/20/19 06:55: Sodium 139, Potassium 3.8, Chloride 107, Carbon Dioxide 29.0, Anion Gap 3 L, BUN 5 L, Creatinine 0.72, Estim Creat Clear Calc 99.56, Est GFR (MDRD) Af Amer 122, Est GFR (MDRD) Non-Af 101, BUN/Creatinine Ratio 6.9 L, Glucose 82, Calcium 8.3 L, Total Bilirubin 0.90, AST 49 H, ALT 216 H, Alkaline Phosphatase 114, Total Protein 6.7, Albumin 3.5, Globulin 3.2, Albumin/Globulin Ratio 1.1 Current Medications Acetaminophen (Tylenol) 650 mg PO Q4H PRN PRN PRN Reason: Pain Score 1-10/10/FEVER Last Admin: 07/20/19 09:26 Dose: 650 mg Documented by: Alprazolam (Xanax) 0.5 mg PO DAILY [facility] Last Admin: 07/20/19 09:23 Dose: 0.5 mg Documented by: Hydromorphone HCl (Dilaudid Inj) 0.5 - 1 mg IV Q2H PRN PRN PRN Reason: Pain Score 4-10/10 Last Admin: 07/20/19 06:38 Dose: 1 mg Documented by: Sodium Chloride () 1,000 mls @ 100 mls/hr IV .Q10H [facility] Last Admin: 07/20/19 01:47 Dose: 100 mls/hr Documented by: Piperacillin Sod/Tazobactam (Sod 3.375 gm/ Sodium Chloride) 50 mls @ 12.5 mls/hr IV Q8 [facility] Last Admin: 07/20/19 05:13 Dose: 12.5 mls/hr Documented by: Sodium Chloride () 250 mls @ 15 mls/hr IV .[id number] PRN PRN Reason: Saline Flush Last Infusion: 07/20/19 05:13 Dose: 0 mls/hr Documented by: Non-Formulary Medication (Dextroamphetamine/Amphetamine [Dextroamp-Amphetamin 20 Mg Tab]) 20 mg PO BID [facility] Ondansetron HCl (Zofran) 4 mg IV Q6H PRN PRN PRN Reason: NAUSEA Last Admin: 07/20/19 06:54 Dose: 4 mg Documented by: Sodium Chloride () 10 - 40 ml IV UD PRN PRN Reason: SALINE FLUSH Last Admin: 07/18/19 20:21 Dose: 10 ml Documented by: Medical Necessity - Tobacco Use Smoking Status: Never smoker Tobacco Use: Non-smoker Assessment/Plan All Active Problems (Last Reviewed 05/29/19 @ 09:53 by Ev Jhaveri) Encounter for induction of labor (Acute) Post-dates (Acute) Obstructive jaundice (Acute) Acute abdominal pain (Acute) Vomiting (Acute) Choledocholithiasis with obstruction (Acute) Anxiety during (Acute) Anemia affecting (Acute) Supervision of other normal (Acute) (Acute) Subchorionic hemorrhage in first trimester (Resolved) 29-year-old female with elevated liver enzymes and cholelithiasis 1. Patient's liver enzymes continue to decrease. I recommend laparoscopic cholecystectomy today to prevent further episodes a choledocholithiasis and to evaluate her common bile duct. 2. I discussed the procedure in detail with the patient. I discussed the risks, benefits, and alternatives of the procedure. I discussed the risks including but not limited to bleeding, infection, injury to surrounding organs such as the liver, bile duct, bowels. I did discuss the possibility of having to convert to an open procedure as well as the possibility that if any injuries occurred this may necessitate further surgery at a tertiary care center. Nawaf Campbell MD Pager: [facility] [address] [place] [address] [address] [place] [address] Office: Essential Procedure Criteria Procedure Essential: Yes Criteria Note: On 06/09/2019 the [place] Department of Health ([facility]) Public Order signed by [facility] Director Brenna Nieto M.D., regarding the Management of Non- Essential Surgeries and Procedures for the purpose of preserving Personal Protective Equipment (PPE) and critical hospital capacity and resources within [place] went into effect as of 06/10/2019 at 5:00PM. According to the [facility] Public Order: This action will remain in full force and effect until the State of Emergency declared by the Governor no longer exists or the Director of the [facility] rescinds or modifies this Order.. This [facility] order stated all non-essential or elective surgeries and procedures that utilize PPE should be delayed unless there is undue risk to the current or future health of a patient. After reviewing the aforementioned [facility] Public Order and the patients clinical case, I have determined that the scheduled procedure meets the criteria to go forward. Risk to Patient if Procedure Delayed: Risk of rapidly worsening to severe symptoms
[2019-07-20] MEDS: Lactated Ringers 1,000 ML 100 ML IV ×2 (12:30→18:55)
--- NOTE | 2019-07-20 12:30 | RAD_ITS ---
STUDY: INTRAOPERATIVE CHOLANGIOGRAM. REASON FOR EXAM: Female, 29 years old. ABD PAIN FLUOROSCOPY TIME (if supplied): ( 46.1 seconds ) minutes/seconds TECHNIQUE: Intraoperative cholangiogram was performed by the surgeon. Imaging was submitted. COMPARISON: None. FINDINGS: Minimally dilated common bile duct. There is transitory narrowing of the distal portion of the common bile duct. No intraluminal filling defect is seen. RAD/Cholangiogram/ O R,Initial IMPRESSION: Minimal dilatation of the common bile duct with the transitory narrowing of the distal portion of the common bile duct. No retained calculus is seen. Electronically Signed: Johnny Oliva, at 13:34 EDT , Service support ,
[2019-07-20] MEDS: Bupiv/Epi 0.25% 30 ML Vial (13:18)
--- NOTE | 2019-07-20 13:37 | PCM.OPRPT ---
Problem List (1) Obstructive jaundice Status: Acute Report of Operation Date of Procedure: 07/20/19 Pre-Operative Diagnosis: Obstructive jaundice, choledocholithiasis Post-Operative Diagnosis: Same Surgery/Procedure Performed:: Laparoscopic cholecystectomy with cholangiogram Description of Surgical Findings:: Dilated cystic and common bile duct. No filling defect per radiologist. Specimen's removed: Gallbladder and contents Description of Procedure: After obtaining informed consent patient was brought back to the operating room. General anesthesia was induced. The abdomen was prepped and draped in usual sterile fashion. A small midline incision was made superior to the umbilicus and deepened to the level of fascia. The fascia was elevated and incised. Next the peritoneum was elevated and incised in the same fashion. Finger sweep was performed and the Kramer trocar was placed into the abdomen. The balloon was inflated. The abdomen was inflated to 15 mmHg. Next a camera was introduced into the abdomen and the abdomen was inspected. Next under direct visualization three 5-mm ports were placed one subxiphoid and 2 subcostal. Next the gallbladder was elevated and retracted toward the right shoulder. The peritoneum was stripped from the gallbladder. The infundibulum was located and retracted laterally. Next the triangle of Calot was dissected and the cystic duct and cystic artery were identified. Cholangiograms were performed. The Guerra clamp was used to clamp across the infundibulum and the catheter needle was inserted into the gallbladder. Under fluoroscopy contrast was instilled into the gallbladder and the common duct, cystic duct as well as proximal hepatic ducts were identified. There was good filling of the duodenum. There were no filling defects noted in the common bile duct. The clamp was removed as well as the needle and the infundibulum was grasped once more. Three hemolock clips were placed across the cystic duct. The cystic duct was then divided leaving 2 clips on the stump. The cystic artery was clipped and divided in the same fashion. The hook cautery was then used to take the gallbladder off of the gallbladder bed. Hemostasis was obtained. Gallbladder fossa was irrigated and no active bleeding or bile leakage was noted. Next the camera was introduced in the subxiphoid port. An Endopouch bag was placed through the umbilical port and the gallbladder was placed into it. The gallbladder was then removed through the umbilical incision. The camera was then reinserted through the umbilical port. The gallbladder fossa was inspected once more and noted to be hemostatic with no leaking bile. The abdomen was suctioned dry. The 5 mm ports were removed under direct visualization. The umbilical port was then removed and the air was removed from the abdomen. Next using an 0 Vicryl suture the umbilical fascia was closed in a [id number] fashion. The umbilical port site was irrigated local anesthetic was administered to all the incisions. All the incisions were closed with interrupted subcuticular 4-0 Monocryl sutures followed by Steri-Strips and dressings. The patient was awoken and taken to PACU in stable condition. - Admit VTE Documentation VTE Mechan Device Prophylaxis: SCD's
--- NOTE | 2019-07-20 13:38 | PCM.DC.GB ---
Discharge Diet: Light diet - advance as tolerated Discharge Activity: Return to Normal Activity, May Not Drive - for 2-3 days or while taking narcotic pain medicataions., - - Do not drive, work heavy equipment or sign legal documents for 24 hours. May shower in (days): 1 - with the bandage in place. Lifting Restrictions: 20 lbs for 2 weeks Additional Activity Instructions:: Pain medication may cause nausea. You should typically eat light foods as you take your pain medications. Pain medication may also cause constipation. If this is a problem for you, please discuss with your doctor. Call your doctor if your incision/area has: Continuous Slow Oozing, Sudden Increased Bleeding, Increased Pain/ Swelling, Increased Redness, Foul Smelling Discharge, Fever of 101 or Higher Call your doctor if you observe: Fever of 101 or Higher Suture Line Care: Avoid Pulling/Pushing, Avoid Pinching/Bending Additional Dressing/Incision Instructions:: Leave operative bandaids on for 2 days. When you remove dressing, leave Steri-Strips on until your follow-up appointment, or until the Steri-Strips fall off on their own. Additional Instructions: Please come to the lab in 1 week for repeat liver enzyme blood test. Allergies/Adverse Reactions: Allergies No Known Allergies Allergy (Verified 07/18/19 16:51) Medications to take at Discharge dextroamphetamine-amphetamine 20 mg tablet 20 mg PO BID 09/02/18 ALPRAZolam [Xanax] 0.5 mg PO DAILY 07/18/19 Oxycodone [Oxyir] 5 - 10 mg PO Q4H PRN PRN 5 Days #30 tablet 07/20/19 The following prescriptions were given: Oxycodone [Oxyir] 5 - 10 mg PO Q4H PRN PRN 5 Days #30 tablet PRN Reason: Pain Score 4-10/10 Transmission Status: Sent to [facility] Orders to be completed after discharge: Liver Profile Time Frame: 1 Week, Facility: [facility], Location: Laboratory Primary Care Physician: NOT,DEFINED [NON-STAFF] - Test Results: Test results from this visit will be discussed in further detail at your follow-up appointment, if applicable. Please Follow Up With: Nawaf Campbell MD When: Please call to schedule 2 week follow up appointment. [phone]
--- NOTE | 2019-07-20 15:07 | PCA ---
rn in with pt after surgery
[2019-07-20] MEDS: 0.9% Saline Lock 10 ML Syringe IV ×2 (15:08→18:55)
--- NOTE | 2019-07-20 15:31 | CPS ---
SMI attempted....Pt unable at this time. Pt cande
[2019-07-20] MEDS: oxyCODONE 5 MG Tablet PO ×3 (17:03→22:10)
[2019-07-21] MEDS: HYDROmorphone 1 MG/ML Syringe IV (01:13)
[2019-07-21 02:45] VITALS: BP 124/91; PULSE 89; RESP 16; TEMP 36.8; O2SAT 99
[2019-07-21] MEDS: Lactated Ringers 1,000 ML 100 ML IV (02:48)
[2019-07-21] MEDS: oxyCODONE 5 MG Tablet PO ×2 (02:48→07:54)
[2019-07-21 06:30] VITALS: BP 135/89; PULSE 73; RESP 16; TEMP 36.7; O2SAT 99
[2019-07-21 07:48] VITALS: BP 140/100; PULSE 84; RESP 18; TEMP 37.1; O2SAT 100
[2019-07-21 09:30] VITALS: BP 136/90
== END 2019-07-21 10:06 | disposition home or self-care (01) ==
LOC: ED 18:34 → MS3 18:51
PROVIDERS: Admitting Provider Surgery; Emergency Provider Emergency Medicine; Visit Provider Surgery
PROC: (CPT 47610; principal; 2019-07-20 11:40)
DX: K80.11 Calculus of gallbladder with chronic cholecystitis with obstruction (principal); F41.9 Anxiety disorder, unspecified; Z79.899 Other long term (current) drug therapy
CPT/HCPCS: 47563; 36415; 74300; 76000; 80048; 80053; 80076; 82150; 83690; 84703; 85025; 88304; 93005; 96361; 96365; 96366; 96375; 96376; 99218; 99251; 99284; J7030; J7050; J7120; A4216; G0378; G0463; J2405

== ENCOUNTER → 2019-07-29 | Outpatient (CLI) | payer MEDICAID, SELFPAY ==
[2019-07-20 09:29] VITALS: BMI 30.8
[2019-07-29 13:52] LABS: AST(SGOT) 13 U/L (15-37); Alanine Aminotransfer ALT/SGPT 42 U/L (13-56); Albumin, Serum 4.1 g/dL (3.2-5.0); Alkaline Phosphatase 73 U/L (45-117); Bilirubin, Direct 0.12 mg/dL (0.00-0.30); Globulin 3.4 g/dL (2.2-4.2); Protein, Total 7.5 g/dL (6.4-8.2)
== END | disposition home or self-care (01) ==
LOC: LAB 12:11
PROVIDERS: Referring Provider Surgery; Visit Provider Surgery
DX: K80.51 Calculus of bile duct without cholangitis or cholecystitis with obstruction (principal)
CPT/HCPCS: 36415; 80076

== ENCOUNTER 2021-03-30 11:17 | Outpatient (CLI) | payer MEDICAID, SELFPAY ==
--- NOTE | 2021-03-30 | EMB_PTH ---
PATIENT: RICARDO ROLLINS LOC: [facility]#:[id number] AGE/SX: 31/ ROOM: RE03/30/[address]: Dr. Chelle Pete MD : 1990 BED: DIS: 03/30/2021 SPEC #: [id number] RECD: 03/31/21 11:04 STATUS: JOSE G KEY #: [id number] MEAGAN: 03/30/21 00:[address]: Chelle Pete DEPT: SURGICAL PATHOLOGY RECD BY: Kacy Darby Tissues: Endometrium, NOS Procedures: Surgery Specimen Level IV HEADER OPERATION: Endometrial biopsy PRE-OP DIAGNOSIS: Abnormal uterine bleeding TISSUE SUBMITTED: Endometrial lining MICROSCOPIC DIAGNOSIS Endometrium, biopsy: Secretory endometrium. AM:vicente 04/03/2021 MICROSCOPIC DESCRIPTION Slides are reviewed. GROSS DESCRIPTION Received is one container labeled with the patient's name and not further designated. The specimen consists of multiple irregular fragments of vanegas mucoid tissue that in aggregate measure 2 x 0.3 x 0.1 cm. The specimen is totally submitted in one cassette. / SJ:rg 03/31/2021 TC:5 CPT: 84937
[2021-03-30 11:33] LABS: Absolute Lymphocyte Count 2.04 X10^3/uL (0.83-4.51); Absolute Neutrophil Count 5.4 X10^3/uL (2.0-7.7); Basophil# 0.08 X10^3/uL; Eosinophil# 0.26 X10^3/uL; Eosinophils% 3.1 % (0-5); Hematocrit 42.9 % (37-47); Hemoglobin 13.9 g/dL (12.0-15.0); Lymphocyte # 2.04 X10^3/ul (0.83-4.51); Lymphocyte % 24.3 % (19-41); Mean Corp Hgb Conc 32.4 g/dL (32-36); Mean Corpuscular Hgb 26.6 pg (27.0-32.0); Mean Corpuscular Volume 82.2 fL (81-99); Mean Platelet Vol. 11.3 fl (6.2-12.0); Monocyte# 0.52 X10^3/uL; Monocyte% 6.2 % (0-10); NRBC Flagged by Analyzer 0 % (0-5); Neutrophil # 5.44 X10^3/uL (2.7-7.7); Neutrophil % 64.9 % (47-70); Platelet Count 238 K/mm3 (150-450); RBC Distribution Width CV 13.2 % (11.6-14.6); RBC Distribution Width SD 39.6 fl (35.1-43.9); Red Blood Count 5.22 M/mm3 (4.2-5.4); White Blood Count 8.4 K/mm3 (4.4-11.0)
== END 2021-03-30 23:59 | disposition short-term general hospital (02) ==
PROVIDERS: Referring Provider Obstetrics & Gynecology; Visit Provider Obstetrics & Gynecology
DX: N93.9 Abnormal uterine and vaginal bleeding, unspecified (principal)
CPT/HCPCS: 36415; 85025; 88305

== ENCOUNTER 2021-04-06 11:31 | Outpatient (CLI) | payer MEDICAID, SELFPAY ==
--- NOTE | 2021-04-06 11:35 | US_ITS ---
STUDY: ULTRASOUND OF THE FEMALE PELVIS - COMPLETE REASON FOR EXAM: Female, 31 years old. Abnormal uterine bleeding. History of endometriosis. LMP: 03/04/2021. TECHNIQUE: Transabdominal and Transvaginal TECHNICAL QUALITY: Adequate. COMPARISON: None. FINDINGS: The uterus is anteverted and is in a midline position. The uterus measures 10.7 cm x 5.7 cm x 6.9 cm. There is a Nabothian cyst of the cervix. The endometrium measures 7 mm in thickness, and is hyperechoic. There is no demonstrated endometrial mass. There is no demonstrated myometrial mass. I.U.D. - The patient does not have an I.U.D. The right ovary is visualized. The right ovary measures 3.5 cm x 2.7 cm x 2 cm. There is no right ovarian cyst or ovarian mass. There is no visualized right adnexal mass or complex lesion. There is normal arterial and normal venous vascularity. The left ovary is visualized. The left ovary measures 3 cm x 2.4 cm x 2 point cm. There is no left ovarian cyst or ovarian mass. There is no visualized left adnexal mass or complex lesion. There is normal arterial and normal venous vascularity. There is no fluid in the cul-de-sac. The pre void volume of the bladder was 370 ml. US/Pelvic (Non ) IMPRESSION: Normal female pelvis. Electronically Signed: Johnny Oliva MD at 12:43 EST , Service support ,
--- NOTE | 2021-04-06 11:35 | US_ITS ---
STUDY: ULTRASOUND OF THE FEMALE PELVIS - COMPLETE REASON FOR EXAM: Female, 31 years old. Abnormal uterine bleeding. History of endometriosis. LMP: 03/04/2021. TECHNIQUE: Transabdominal and Transvaginal TECHNICAL QUALITY: Adequate. COMPARISON: None. FINDINGS: The uterus is anteverted and is in a midline position. The uterus measures 10.7 cm x 5.7 cm x 6.9 cm. There is a Nabothian cyst of the cervix. The endometrium measures 7 mm in thickness, and is hyperechoic. There is no demonstrated endometrial mass. There is no demonstrated myometrial mass. I.U.D. - The patient does not have an I.U.D. The right ovary is visualized. The right ovary measures 3.5 cm x 2.7 cm x 2 cm. There is no right ovarian cyst or ovarian mass. There is no visualized right adnexal mass or complex lesion. There is normal arterial and normal venous vascularity. The left ovary is visualized. The left ovary measures 3 cm x 2.4 cm x 2 point cm. There is no left ovarian cyst or ovarian mass. There is no visualized left adnexal mass or complex lesion. There is normal arterial and normal venous vascularity. There is no fluid in the cul-de-sac. The pre void volume of the bladder was 370 ml. US/Transvaginal Non- IMPRESSION: Normal female pelvis. Electronically Signed: oJhnny Oliva MD at 12:43 EST , Service support ,
== END 2021-04-06 23:59 | disposition short-term general hospital (02) ==
LOC: US 11:33
PROVIDERS: Referring Provider Physician Assistant; Visit Provider Physician Assistant
DX: N93.9 Abnormal uterine and vaginal bleeding, unspecified (principal)
CPT/HCPCS: 76830; 76856

== ENCOUNTER 2021-05-23 07:34 | Day surgery (SDC) | payer MEDICAID, SELFPAY ==
[2021-05-22 10:58] LABS: Absolute Lymphocyte Count 2.16 X10^3/uL (0.83-4.51); Absolute Neutrophil Count 6.6 X10^3/uL (2.0-7.7); Basophil# 0.07 X10^3/uL; Basophil% 0.7 % (0-1); Eosinophil# 0.43 X10^3/uL; Eosinophils% 4.4 % (0-5); Hematocrit 39.4 % (37-47); Hemoglobin 13.2 g/dL (12.0-15.0); Lymphocyte # 2.16 X10^3/ul (0.83-4.51); Mean Corp Hgb Conc 33.5 g/dL (32-36); Mean Corpuscular Hgb 27.4 pg (27.0-32.0); Mean Corpuscular Volume 81.7 fL (81-99); Mean Platelet Vol. 12.2 fl (6.2-12.0); Monocyte# 0.52 X10^3/uL; Monocyte% 5.3 % (0-10); NRBC Flagged by Analyzer 0 % (0-5); Neutrophil # 6.59 X10^3/uL (2.7-7.7); Platelet Count 242 K/mm3 (150-450); RBC Distribution Width CV 13.5 % (11.6-14.6); RBC Distribution Width SD 40.2 fl (35.1-43.9); Red Blood Count 4.82 M/mm3 (4.2-5.4); White Blood Count 9.8 K/mm3 (4.4-11.0)
[2021-05-22 11:18] LABS: Magnesium 2.1 mg/dL (1.6-2.6)
--- NOTE | 2021-05-22 17:25 | HP.PCM_ITS ---
History and Physical Intake Vital Signs 05/16/21 10:58 Height 5 ft 5 in Weight: 221 lb BMI 36.8 BP 140/102 H Intake Visit Reasons: TVHBS Chief Complaint: pre op TVH BS Rn Charge Required: No Is patient in pain?: No Allergies No Known Allergies Allergy (Verified 03/30/21 10:30) Medications dextroamphetamine-amphetamine 20 mg tablet 20 mg PO BID 09/02/18 [History Confirmed 05/16/21] alprazolam 0.5 mg PO DAILY 07/18/19 [History Confirmed 05/16/21] dextroamphetamine-amphetamine ER 30 mg 24hr capsule,extend release 30 mg PO DAILY 03/30/21 [History Confirmed 05/16/21] propranolol 60 mg capsule,24 hr,extended release 60 mg PO DAILY 03/30/21 [History Confirmed 05/16/21] sumatriptan succinate 25 mg tablet 25 mg PO ONCE 03/30/21 [History Confirmed 0 05/16/21] Is last menstrual period known: No Post menopausal: No Patient : No : No PFSH Medical History ADD (attention deficit disorder) Anxiety Endometriosis Sciatic nerve pain Surgical History H/O wisdom tooth extraction Status post cholecystectomy Family History Mother Diabetes Hypertension Father Hypertension Social History adopted: No household members: family housing: house number of children: 2 current occupational status: unemployed current occupational exposures/hazards: No pets and animals: No history of recent travel: No sexually active: Yes Smoking Status: Never smoker second hand exposure: No alcohol intake: current alcohol intake frequency: a few times a week substance use type: does not use what type of physical activity do you participate in: walking and aerobics frequency: 5-6 times per week seatbelt use: always do you feel safe at home: Yes additional social history: [employer] ([employer]) HPI TVHBS Details: RICARDO ROLLINS is a 31 year old who presents for preop hysterectomy for AUB and pain. 10 cm uterus Female Reproductive History Menopausal Symptoms: No hot flashes, No night sweats, No difficulty concentrating and No change in libido Pregancy History 2 Elective abortions Hx Para 2 Spontaneous abortions Hx # Term Pregnancies 2 Ectopic pregnancies Hx # Pregnancies Multiple births # of living children 2 Past Pregnancies Del. Date Name GA/Weeks Outcome Route [facility] Mj Smith live - full term 8lbs 6oz Female 26hrs pushed 2 hrs epidural [facility] Dr. Cherry Hesham 04/12/19 Veronika live - full term 7lbs 13oz Female [facility] Dr. Chelle Pete Delivery Date: 06/29/16 Induced- post dates Lashanda Hannah Delivery Date: 04/12/19 IOL for postdates EmilioEvjeannette JEFFERS Const Constitutional: Denies fatigue, night sweats, weight gain or weight loss ENT ENT: Reports system reviewed and no additional complaints, except as documented Cardio Card: Denies chest pain Resp Resp: Denies cough or dyspnea GI GI: Reports as per HPI; Denies constipation, nausea or vomiting : Reports as per HPI; Denies hot flashes, nipple discharge, vaginal discharge, vaginal dryness, vaginal odor or vaginal pruritus Musc Musc: Denies arthralgias, back pain or muscle weakness Skin Skin/Breast: Denies alopecia, change in hair, dry skin, breast mass, breast pain, breast skin changes or nipple discharge Neuro Neuro: Reports system reviewed and no additional complaints, except as documented Psych Psych: Reports system reviewed and no additional complaints, except as document ed; Denies change in libido or difficulty concentrating Endo Endo: Denies cold intolerance, excessive sweating, heat intolerance or polydipsia Efrain/Lymph Hematologic/Lymphatic: Denies easy bleeding, Denies easy bruising and Denies lymphadenopathy Exam Const General: cooperative, healthy appearing, comfortable, no acute distress and well developed Orientation: alert [facility] Head: normal to inspection and normocephalic Ears: hearing grossly normal bilaterally and external ears normal Nose: external nose normal and nares normal Face and sinus: normal facial exam Neck Neck: normal visual inspection and no lymphadenopathy Thyroid: thyroid normal Chest Chest palpation & inspection: normal inspection of the chest Resp Effort & Inspection: normal respiratory effort Auscultation: clear to auscultation bilaterally Cardio Rate: regular rate Rhythm: regular rhythm Heart Sounds: S1 normal and S2 normal GI Inspection: normal to inspection and non-distended Palpation: soft and no hepatosplenomegaly General: bladder normal to palpation External Female Exam: normal external appearance and normal appearance of the urethra Urethra: normal appearance of the urethra, normal palpation and no discharge Speculum Exam - Vagina: normal appearance of the vagina and normal vaginal discharge Speculum Exam - Cervix: normal appearance of the cervix and nontender Bimanual Exam- Vagina & Uterus: normal bimanual exam, uterine size normal, bladder normal to palpation, uterine shape normal, No tender, uterine mobility normal, consistency normal, normal palpation and non-tender Bimanual Exam- Adnexa, other: normal adnexae, adnexae mobile, no masses and normal Pelvic Support: normal Musc Other: gross motor intact no deficits, full bilateral strength Skin General: no rashes or lesions noted Neuro General: patient alert, patient awake, moves all extremities and no focal motor deficits Motor: muscle tone normal throughout Extrem General: normal to inspection and no pedal edema Psych Appearance: grossly normal Mental Status: mental status grossly normal Affect: normal affect Speech and Movement: speech and movement normal Coding Level of Care Code No Charge Diagnoses Abnormal uterine bleeding N93.9 Assessment and Plan Assessment and Plan (1) Abnormal uterine bleeding: Status: Acute Comment: failed OCP, IUD, suspect adenomyosis. plan TVH BS. labs, US ordered. emb done Plan - Dr. Chelle Pete MD: After discussing the patient's diagnosis and treatment plan options, patient wishes to proceed with surgical management. I have discussed with the patient the risks, benefits, and alternatives of the procedure which include but are not limited to risks of anesthesia, bleeding, infection, possible damage to bowel, bladder, or surrounding vasculature which could lead to additional surgery to evaluate any complications. Patient agrees to procedure and wishes to proceed. ACOG/uptodate references given for additional information regarding procedure. UPDATE- I have seen the patient and performed any clinically relevant updates to the history and physical exam. Chelle Pete MD
[2021-05-23] VITALS (19 sets, daily range): BP systolic 112–144; BP diastolic 71–107; PULSE 73–110; RESP 16–28; TEMP 36.4–37.1; O2SAT 91–100; BMI 37.4
[2021-05-23 08:10] LABS: Internal QC Validated? YES +Cl - CLEAR BKGD
[2021-05-23 08:11] LABS: Pregnancy, Urine Negative Negative
[2021-05-23] MEDS: dexAMETHasone 10 MG/ML Vial 8 MG IV (08:15)
--- NOTE | 2021-05-23 08:34 | PCM.OPRPT ---
Problems Associated Problem List Diagnoses (1) Abnormal uterine bleeding: (2) Dysmenorrhea: Report of Operation Pre-Operative Diagnosis: see A/P Post-Operative Diagnosis: same Surgery/Procedure Performed:: TVH BS Type of Anesthesia: General Specimen's removed: uterus, tubes Drains: [place] Fluids Replaced: crystalloid Description of Procedure: Patient was taken to the operating room and was placed under general anesthesia was prepped and draped in normal sterile fashion in the dorsal lithotomy position. Preoperative antibiotics and SCDs and [place] catheter was placed inside the bladder. Weighted speculum was placed in the vagina and the anterior and posterior lip of the cervix was grasped with 2 Rios clamps and circumferentially injected with dilute vasopressin. A circumferential incision was made with a scalpel and the posterior cul-de-sac was entered into sharply and a longneck speculum was placed. The anterior cul-de-sac was also dissected down and entered into sharply and the uterosacral ligaments were clamped cut and suture ligated bilaterally followed by the cardinal ligaments which were Clamped cut and suture ligated bilaterally with 0 Monocryl. The uterus serially descended and progressive bites were taken bilaterally up to the level of the utero-ovarian ligament bilaterally which was clamped transected and double ligated with 0 Monocryl suture and 0 Vicryl free tie. Bilateral fallopian tubes and ovaries were well visualized and noted be within normal limits and the bilateral fallopian tubes were transected across the base with a Mahogany clamp and removed and sutured with 0 Vicryl suture. Excellent hemostasis was noted. The vagina was closed with [id number] 0 Vicryl pop offs including the posterior and anterior peritoneum in the reapproximation. Excellent hemostasis was noted. All instruments removed from the vagina clear urine was noted at the end of the procedure and patient was awoken and taken recovery in stable condition. Grafts/Implants Used: none Complications none Admit VTE Documentation VTE Present on Admission: No VTE Mechan Device Prophylaxis: SCD's VTE Pharm Prophylaxis ordered?: Yes Multi Select Codes Urinary/Genital Urinary/Genital CPT Codes: 07649 TVH+BS/O <250gr uterus
--- NOTE | 2021-05-23 08:35 | EX.PCM.DISCH ---
Discharge Instructions Diet Discharge Diet: No restrictions Activity May resume sexual activity in: 6 weeks Weight Bearing Status: Full weight bearing Dressing / Incision Call your doctor if your incision/area has: Continuous Slow Oozing, Sudden Increased Bleeding, Increased Pain/ Swelling, Increased Redness and Foul Smelling Discharge Call your doctor if you observe: Fever of 101 or Higher, Using more than 1 pad per hour, Shortness of breath, Chest pain and Uncontrolled pain Suture Line Care: Avoid Pulling/Pushing and Avoid Pinching/Bending Remove Dressing in: 1 week (if present) Cleanse incision/area with: Soap & Water and Keep Dressing Clean & Dry Follow Up Care Please Follow Up With: Chelle Pete MD When: Call to make an appointment with your doctor for a postop visit in 2 and 6 weeks. Test Results: Test results from this visit will be discussed in further detail at your follow-up appointment, if applicable. Discharge Plan Admission Primary Reason for Your Visit: hysterectomy Attending Provider: Chelle Pete Discharge Orders/Prescriptions Prescriptions: New oxycodone-acetaminophen [Percocet] 5-325 mg tablet 1 tab PO Q6H PRN (Reason: pain) 7 Days Qty: 20 RF: 0 naproxen [naproxen] 500 MG tablet 500 mg PO BID PRN PRN (Reason: Pain) Qty: 30 RF: 1 Continued dextroamphetamine-amphetamine [Adderall] 20 mg tablet 20 mg PO 1500 RF: 0 dextroamphetamine-amphetamine [Adderall XR] 30 mg capsule,extended release 24hr 30 mg PO DAILY RF: 0 sumatriptan succinate [Imitrex] 25 mg tablet 25 mg PO ONCE RF: 0 alprazolam 0.5 MG tablet 0.5 mg PO QHS RF: 0 Referrals / Follow Up: JACQUIE CALHOUN [Other] Disposition Disposition (needs filled in before D/C Order can be placed): Home, Self Care
[2021-05-23] MEDS: Acetaminophen 500 MG Tablet 1000 MG PO ×2 (08:40→14:16)
[2021-05-23] MEDS: Celecoxib 200 MG Capsule 400 MG PO (08:41)
[2021-05-23] MEDS: Phenazopyridine 95 MG Tablet 190 MG PO (08:41)
[2021-05-23] MEDS: Gabapentin 600 MG Tablet PO (08:41)
[2021-05-23] MEDS: Enoxaparin 40 MG/0.4 ML Syringe SC (08:41)
[2021-05-23] MEDS: Lactated Ringers 1,000 ML 40 ML IV (08:42)
[2021-05-23] MEDS: Scopolamine 1mg/72hr Patch 1 PATCH TD (08:51)
[2021-05-23] MEDS: Vasopressin 20 UNITS/ML Vial (09:10)
[2021-05-23] MEDS: Cefazolin 2 GM in 0.9% Normal Saline 100 ML IV (09:34)
--- NOTE | 2021-05-23 09:35 | HYST_PTH ---
PATIENT: RICARDO ROLLINS [place] [facility] [id number] AGE/SX: 31/F ROOM: RE05/23/[address]: Dr. Chelle Pete MD : 1990 BED: DIS: 05/23/2021 SPEC #: [id number] RECD: 05/23/21 13:14 STATUS: JOSE G MACKEY #: [id number] MEAGAN: 05/23/21 09:[address]: Chelle Pete DEPT: SURGICAL PATHOLOGY RECD BY: Kacy Darby Tissues: Uterus, NOS Procedures: Surgery Specimen Level V HEADER OPERATION: ERAS, vaginal hysterectomy, bilateral salpingectomy PRE-OP DIAGNOSIS: Abnormal uterine bleeding, adenomyosis TISSUE SUBMITTED: Uterus, cervix, bilateral tubes MICROSCOPIC DIAGNOSIS Uterus, cervix and bilateral fallopian tubes, vaginal hysterectomy and bilateral salpingectomy: Cervix ? chronic inflammation. Endometrium ? proliferative endometrium. Myometrium - no pathologic diagnosis. Bilateral fallopian tubes - no pathologic diagnosis. Paratubal cysts. SJ:rg 05/25/2021 MICROSCOPIC DESCRIPTION Slides are reviewed. GROSS DESCRIPTION Received in fixative is one container labeled with the patient's name and designated uterus, cervix, bilateral fallopian tubes. The specimen consists of a hysterectomy specimen consisting of uterus with cervix and detached bilateral fallopian tubes. The uterus with cervix weighs 172 gm and measures 11 x 7 x 5.5 cm. The serosal surface is vanegas, glistening. The ectocervical mucosa is unremarkable. The external os is patulous in contour. The endocervical canal measures 4 cm in length and the endocervical mucosa is vanegas, glistening and unremarkable. The triangular endometrial cavity measures 5 cm in length and up to 4 cm in width. The endometrium is vanegas, congested without any mass lesion and measures up to 0.2 cm in thickness. Sections of the uterine wall do not reveal any mass lesion and measures up to 2.5 cm in thickness. The fallopian tubes are not identified as right or left and measures 4 cm in length and 0.7 cm in diameter and 3.5 cm in length and 0.7 cm in diameter. Fimbrial ends are identified. Sections reveal unremarkable cut surfaces. Two paratubal cysts are noted adjacent to one fallopian tube measuring 0.5 and 1 cm in diameter. The cysts are filled with clear, mucoid fluid. Sections reveal unremarkable cut surfaces. Anatomic Pathology Assistant sections are submitted in eight cassettes as follows: 1 - anterior cervix, 2??posterior cervix, 3 & 4 - anterior uterine wall, 5 & 6 - posterior uterine wall, 7 - one fallopian tube, 8??second fallopian tube and paratubal cysts, submitted in entirety. / NEIDA:vicente 05/24/2021 TC:3 CPT: 58267
[2021-05-23 09:56] LABS: Bedside Glucose 94 mg/dL (70-110)
[2021-05-23] MEDS: Ondansetron 4 MG/2 ML Vial IV (10:30)
[2021-05-23] MEDS: Lactated Ringers 1,000 ML 70 ML IV (12:01)
[2021-05-23] MEDS: oxyCODONE 5 MG Tablet PO (13:37)
[2021-05-23] MEDS: Ketorolac 30 MG/ML Syringe IV (14:17)
[2021-05-23 14:52] LABS: Absolute Lymphocyte Count 0.98 X10^3/uL (0.83-4.51); Absolute Neutrophil Count 17.3 X10^3/uL (2.0-7.7); Basophil# 0.04 X10^3/uL; Basophil% 0.2 % (0-1); Eosinophil# 0.01 X10^3/uL; Eosinophils% 0.1 % (0-5); Hematocrit 38.6 % (37-47); Hemoglobin 12.6 g/dL (12.0-15.0); Lymphocyte # 0.98 X10^3/ul (0.83-4.51); Lymphocyte % 5.2 % (19-41); Mean Corp Hgb Conc 32.6 g/dL (32-36); Mean Corpuscular Hgb 27.2 pg (27.0-32.0); Mean Corpuscular Volume 83.4 fL (81-99); Mean Platelet Vol. 11.5 fl (6.2-12.0); Monocyte# 0.33 X10^3/uL; Monocyte% 1.8 % (0-10); NRBC Flagged by Analyzer 0 % (0-5); Neutrophil # 17.25 X10^3/uL (2.7-7.7); Neutrophil % 92.1 % (47-70); Platelet Count 232 K/mm3 (150-450); RBC Distribution Width CV 13.6 % (11.6-14.6); RBC Distribution Width SD 41.5 fl (35.1-43.9); Red Blood Count 4.63 M/mm3 (4.2-5.4); White Blood Count 18.7 K/mm3 (4.4-11.0)
== END 2021-05-23 23:59 | disposition home or self-care (01) ==
LOC: SDC 07:37 → AC 07:37
PROVIDERS: Anesthesiology; Referring Provider Obstetrics & Gynecology; Visit Provider Obstetrics & Gynecology
PROC: (CPT 58260; principal; 2021-05-23 09:15)
DX: N83.8 Other noninflammatory disorders of ovary, fallopian tube and broad ligament (principal); N93.9 Abnormal uterine and vaginal bleeding, unspecified; N94.6 Dysmenorrhea, unspecified; Z56.0 Unemployment, unspecified; F98.8 Other specified behavioral and emotional disorders with onset usually occurring in childhood and adolescence; F41.9 Anxiety disorder, unspecified; Z97.3 Presence of spectacles and contact lenses; Z90.49 Acquired absence of other specified parts of digestive tract
CPT/HCPCS: 58262; 00944; 36415; 81025; 82962; 83735; 85025; 86850; 86900; 86901; 87426; 88307; C9803; J7120; J2405; J3490

== ENCOUNTER → 2022-10-09 | Outpatient (CLI) | payer MEDICAID, SELFPAY ==
--- NOTE | 2022-10-09 10:42 | US_ITS ---
INDICATION: elevated liver enzymes EXAMINATION: Ultrasound US Abdomen Limited (quadrant) TECHNIQUE: Palomares scale and color doppler imaging was performed of the right upper quadrant. COMPARISON: FINDINGS: LIVER: Liver measures 16.5 cm in greatest longitudinal dimension. Increased echogenicity in the liver may represent fatty infiltration. No focal hepatic lesion. There is no free fluid. GALLBLADDER AND BILIARY TREE: Patient status post cholecystectomy. The proximal common bile duct measures 4.8 mm, which is within normal limits for the patient''s age. PANCREAS: No focal abnormality is demonstrated in the pancreas. No pancreatic ductal dilatation. RIGHT KIDNEY: Right kidney measures 12 x 5.2 x 4.2 cm without focal abnormalities. US/Abdomen Limited IMPRESSION: Fatty infiltration of the liver. Electronically Signed: Arash Turner, at 12:14 EDT ,
== END | disposition home or self-care (01) ==
LOC: US 10:41
PROVIDERS: Referring Provider Obstetrics & Gynecology; Visit Provider Obstetrics & Gynecology
DX: R74.8 Abnormal levels of other serum enzymes (principal)
CPT/HCPCS: 76705

== ENCOUNTER 2023-04-30 19:38 | Emergency (ER) | payer MEDICAID, SELFPAY ==
[2023-04-30 19:42] VITALS: BP 153/104; PULSE 99; RESP 16; TEMP 36; O2SAT 100; BMI 38.1
--- OUTSIDE RECORDS SUMMARY | 2023-04-30 20:47 | XMS RPT_ITS | CCD ---
Author Name Unknown Address [address] [place] [address] Organization [facility] Care Team Providers Care 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 Name Role Phone Unavailable Primary Care Provider Unavailabl e Tanvir Calhoun MD Primary Care Provider Tanvir Calhoun MD Primary Care Provider TANVIR CALHOUN Primary Care Unavailable DROMAGGIE, TANVIR Attending Unavailable DROMAGGIE, TANVIR Primary Care Unavailable DROMAGGIE, TANVIR Attending Unavailable DROMAGGIE, TANVIR Primary Care Unavailable DROMAGGIE, TANVIR Attending Unavailable DROMAGGIE, TANVIR Attending Unavailable TANVIR CALHOUN Primary Care Unavailable Medications Current Medications Medication Drug Class(es) Dates Sig (Normalized) Sig (Original) [id number] 200 actuat albuterol 0.09 mg/actuat metered dose inhaler (17 sources) beta2-Adrenergic Agonist Start: 03-12-2023 take 2 puff(s) by inhalation every six hours as needed for wheezing albuterol 108 (90 Base) MCG/ACT inhaler Inhale 2 puffs every 6 hours as needed for wheezing or shortness of breath. 18 g 0 03/12/2023 Active Completed/Discontinued Medications Medication Drug Class(es) Dates Sig (Normalized) Sig (Original) benzonatate 100 mg oral capsule (1 source) Non-narcotic Antitussive Start: 09-08-2021 take 100-200 mg by mouth every eight hours as needed for cough and cough benzonatate (TESSALON PERLES) 100 mg capsule Indications: Cough Take 1-2 capsules by mouth three times daily as needed for cough. 30 capsule 0 09/08/2021 Active Problems Active Problems Problem Classification Problem Date Documented Date Episodic/Chronic Allergic reactions (4 sources) Atopic dermatitis; Translations: [Intrinsic (allergic) eczema] Onset: 3 Chronic Anxiety disorders (20 sources) Anxiety; Translations: [Anxiety disorder, unspecified] Onset: 7 01-04-2022 Chronic Attention-deficit, conduct, and disruptive behavior disorders (20 sources) Attention deficit hyperactivity disorder; Translations: [Attention-deficit hyperactivity disorder, predominantly hyperactive type] Onset: 7 01-04-2022 Chronic Attention-deficit, conduct, and disruptive behavior disorders (1 source) Attention-deficit hyperactivity disorder, predominantly hyperactive type; Translations: [Attention-deficit hyperactivity disorder, predominantly hyperactive type] Onset: 2 Chronic Disorders of lipid metabolism (3 sources) Mixed hypercholesterolemia and hypertriglyceridemia; Translations: [Mixed hyperlipidemia] Onset: 3 04-29-2023 Chronic Esophageal disorders (15 sources) Gastroesophageal reflux disease without esophagitis; Translations: [Gastro-esophageal reflux disease without esophagitis] Onset: 8 01-04-2022 Chronic Headache; including migraine (20 sources) Migraine without aura, not refractory ; Translations: [Migraine without aura, not intractable, without status migrainosus] Onset: 2 03-01-2022 Chronic Other lower respiratory disease (1 source) Cough; Translations: [Cough] Episodic Other nutritional; endocrine; and metabolic disorders (1 source) Obesity; Translations: [Other obesity due to excess calories] Chronic Other nutritional; endocrine; and metabolic disorders (1 source) Obesity caused by energy imbalance; Translations: [Other obesity due to excess calories] 04-29-2023 Chronic Other nutritional; endocrine; and metabolic disorders (2 sources) Body mass index (BMI) 37.0-37.9, adult; Translations: [Body mass index (BMI) 37.0-37.9, adult] Onset: 3 Chronic Other nutritional; endocrine; and metabolic disorders (2 sources) Body mass index (BMI) 39.0-39.9, adult; Translations: [Body mass index (BMI) 39.0-39.9, adult] Onset: 3 Chronic Other nutritional; endocrine; and metabolic disorders (2 sources) Other obesity due to excess calories; Translations: [Other obesity due to excess calories] Onset: 3 Chronic Other nutritional; endocrine; and metabolic disorders (2 sources) Body mass index (BMI) 38.0-38.9, adult; Translations: [Body mass index (BMI) 38.0-38.9, adult] Onset: 3 Chronic Other skin disorders (1 source) Dry skin dermatitis; Translations: [Xerosis cutis] Episodic Past or Other Problems Problem Classification Problem Date Documented Date Episodic/Chronic Mood disorders (1 source) Mood disorders Onset: 04-29-2023 04-29-2023 Other aftercare (2 sources) Other intermediate accountant (current) drug therapy; Translations: [Other nursing home (current) drug therapy] Onset: 09-18-2022 Episodic Other screening for suspected conditions (not mental disorders or infectious disease) (3 sources) Patient encounter status; Translations: [Encounter for screening for cardiovascular disorders] Onset: 06-12-2022 Episodic Results Test Name Value Interpretation Reference Range Facil ity Vital Signs Date Time Vital Sign Value Performing Clinician Christine head 09-08-2021 17:52-0400 Body height 165.1 cm Jeanne Xiao APRN.MARBLE CLEANER Work Phone: [facility] 09-08-2021 17:52-0400 Body temperature 97.9 [degF] Jeanne Xiao APRN.MARBLE CLEANER Work Phone: [facility] 09-08-2021 17:52-0400 Body weight 102.51 kg Jeanne Xiao APRN.VENKATESH Work Phone: [facility] 09-08-2021 17:52-0400 Diastolic blood pressure 97 mm[Hg] Jeanne Xiao APRN.MARBLE CLEANER Work Phone: [facility] 09-08-2021 17:52-0400 Heart rate 90 /min Jeanne Xiao APRN.MARBLE CLEANER Work Phone: [facility] 09-08-2021 17:52-0400 Respiratory rate 16 /min Jeanne Xiao APRN.MARBLE CLEANER Work Phone: [facility] 09-08-2021 17:52-0400 SaO2% (BldA) [Mass fraction] 100 % Jeanne Xiao HORIZONTAL BORING MILL SET UP OPERATOR.MARBLE CLEANER Work Phone: [facility] 09-08-2021 17:52-0400 Systolic blood pressure 144 mm[Hg] Jeanne Dameon FLORES Work Phone: [facility] Encounters Encounter Date Encounter Type Care Provider Facility Start: 04-29-2023 End: 04-29-2023 ambulatory TANVIR CALHOUN [facility] Start: 04-29-2023 End: 04-29-2023 Office outpatient visit 25 minutes Tanvir Calhoun MD Work Phone: [facility] & Internal Medicine Procedures Date Procedure Procedure Detail Performing Clinician Start: 04-29-2023 Adult depression screening assessment Tanvir Calhoun MD Work Phone: Start: 12-25-2022 Adult depression screening assessment Lucero Maldonado MD Work Phone: Start: 09-18-2022 Lipid 1996 panel - S pasquale or Plasma Tanvir Calhoun MD Work Phone: Start: 03-01-2022 Adult depression screening assessment Tanvir Calhoun MD Work Phone: Plan of Treatment Date Care Activity Detail Author Start: 2050 RSV Immunization age d 60 or older (1 - 1-dose 60+ series) RSV Immunization aged 60 or older (1 - 1-dose 60+ series) [facility] Start: 2040 Zoster Vaccines (1 of 2) Zoster Vacc barry (1 of 2) [facility] Start: 01-01-2029 DTaP/Tdap/Td Vaccine s (3 - Td or Tdap) DTaP/Tdap/Td Vaccines (3 - Td or Tdap) [facility] Start: 01-01-2029 DTaP/Tdap/Td Vaccine s (4 - Td or Tdap) DTaP/Tdap/Td Vaccines (4 - Td or Tdap) [facility] Start: 09-19-2027 Lipid panel Lipid Panel [facility] Start: 04-29-2024 COVID-19 Vaccine (#1) COVID-19 Vacci ne (#1) [facility] Immunizations Immunization Date Immunization Notes Care Provider Fa cility 12-21-2019 influenza, injectabl e, quadrivalent, preservative free Tanvir Calhoun MD Work Phone: [facility] 12-21-2019 influenza virus vacc ine, unspecified formulation Tanvir Calhoun MD Work Phone: [facility] 01-21-2019 influenza virus vacc ine, unspecified formulation Tanvir Calhoun MD Work Phone: [facility] 01-01-2019 diphtheria, tetanus toxoids and acellular pertussis vaccine, unspecified formulation Tanvir Calhoun MD Work Phone: [facility] 01-01-2019 influenza, seasonal, injectable, preservative free Tanvir Calhoun MD Work Phone: [facility] 01-01-2019 tetanus toxoid, redu faheem diphtheria toxoid, and acellular pertussis vaccine, adsorbed Tanvir Calhoun MD Work Phone: [facility] 06-30-2016 tetanus toxoid, redu faheem diphtheria toxoid, and acellular pertussis vaccine, adsorbed Tanvir Calhoun MD Work Phone: [facility] 11-17-2002 measles, mumps and rubella virus vaccine Tanvir Calhoun MD Work Phone: [facility] Payers Date Payer Category Payer Medicaid [id number] 2022 Medicaid [id number] 2022 Medicaid [id number] 2021 Medicaid [employer] [facility] [id number] 2021-Present [phone] [address] [place] [address] Medicaid 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 smoking consumption unknown [facility] Start: 1990 [facility] Start: 08-29-2021 End: 09-08-2021 Exposure to SARS-CoV-2 (event) Not sure [facility] Tobacco smoking status NHIS Never smoked tobacco [facility] Start: 03-01-2022 End: 04-29-2023 Alcohol intake Current non-drinker of alcohol (finding) [facility] Start: 03-01-2022 History SDOH Alcohol Frequency 1 [facility] Start: 03-01-2022 History SDOH Alcohol Std Drinks 0 [facility] Start: 03-01-2022 History SDOH Financial 5 [facility] Start: 03-01-2022 History SDOH Transport Med 2 [facility] Start: 03-01-2022 End: 04-29-2023 History of Social function [facility] Start: 03-01-2022 End: 04-29-2023 Alcohol Use Disorder Identification Test - Consumption [AUDIT-C] [facility] How often to you hav e a drink containing alcohol? Never [facility] How many standard dr inks containing alcohol do you have on a typical day? Patient does not drink [facility] (I/We) worried wheth er (my/our) food would run out before (I/we) got money to buy more. Never true [facility] In the past 12 month s, was there a time when you were not able to pay the mortgage or rent on time? No [facility] Are you now , , , , never or living with a partner? Never [facility] How often to you hav e a drink containing alcohol? Monthly or less [facility] How many standard dr inks containing alcohol do you have on a typical day? 1 or 2 [facility] Do you feel stress - tense, restless, nervous, or anxious, or unable to sleep at night because your mind is troubled all the time - these days [OSQ] Not at all [facility] Goals Date Patient Goal Desired Activity /State Personal health goal Clinical Notes 09-08-2021 to 04-29-2023 Tanvir Calhoun MD - 04/29/2023 11:40 AM ESTTelephone Encounter - Stephanie Venegas MA - 04/04/2023 3:09 PM ESTTelephone Encounter - Stephanie Venegas MA - 04/04/2023 3:09 PM EST Note Date & Type Note Facility 04-29-2023 History of Presen t illness Narrative Patient was identified and seen today via Telehealth by agreement and consent. I used the following Telehealth technology: Audio and video capabilities. Patient location: Patient Location: Home. This patient encounter is appropriate and reasonable under the circumstances: transportation issues . The patient has been advised of the potential risks and limitations of this mode of treatment (including but not limited to the absence of in-person examination) and has agreed to be treated in a remote fashion in spite of them. Any and all of the patient's/patient's family's questions on this issue have been answered and I have made no promises or guarantees to the patient. The patient has also been advised to contact this office for worsening conditions or problems, and seek emergency medical treatment and/or call 911 if the patient deems either necessary. The patient stated that they are currently in the [facility]. If the patient is a minor, permission has been obtained by the parent or guardian for the patient to receive medical care at this visit. Subjective Patient ID: Soha Rollins is a 33 y.o. female who presents for ADHD. 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 Headaches flared last week, improved this week. Using propranolol daily. Using prn tylenol/sleep/imitrex. Imitrex working well, needed 1 time last week, typically ~ 1 time per week History of endometriosis- prior hysterectomy Anxiety/depression - Needing to take xanax 1 time daily in the afternoon when mother adding stress, [place] reviewed last refill 04-09-23. Has not been able to schedule with psychology due to not having childcare. ADHD - taking adderall 30 mg XR 6 am, will occasionally take 20 mg adderall in evening, denies side effects, feels working well, [facility] reviewed last refill 04-09-23 for both Obesity - working on exercising regularly, eating healthy (eating more chicken, white rice, stopped sugary drinks) Periodic eczematous flares, will use kenalog for 1-2 days and symptoms resolve for weeks, Review of Systems Respiratory: Negative for shortness of breath. Psychiatric/Behavioral: Positive for decreased concentration. Negative for sleep disturbance. The patient is nervous/anxious. Patient Active Problem List Diagnosis Date Noted Migraine without aura and without status migrainosus, not intractable 03/01/2022 Gastroesophageal reflux disease without esophagitis 11/05/2017 Anxiety 04/04/2016 Attention-deficit hyperactivity disorder, predominantly hyperactive type 04/04/2016 Current Outpatient Medications Medication Sig Dispense Refill albuterol 108 (90 Base) MCG/ACT inhaler Inhale 2 puffs every 6 hours as needed for wheezing or shortness of breath. 18 g 0 ALPRAZolam (Xanax) 0.5 MG tablet Take 1 tablet (0.5 mg) by mouth Daily as needed for anxiety. 30 tablet 0 amphetamine-dextroamphetamine (Adderall) 20 MG tablet Take 1 tablet (20 mg) by mouth daily. 30 tablet 0 amphetamine-dextroamphetamine XR (Adderall XR) 30 MG 24 hr capsule Take 1 capsule (30 mg) by mouth every morning. Do not crush or chew. 30 capsule 0 propranolol LA (Inderal LA) 60 MG 24 hr capsule Take 1 capsule (60 mg) by mouth daily. 90 capsule 0 SUMAtriptan (Imitrex) 100 MG tablet Take 1 tablet (100 mg) by mouth Once as needed for migraine. 9 tablet 2 No current facility-administered medications for this visit. Allergies: Patient has no known allergies. Past Medical History: Diagnosis Date Anxiety 04/04/2016 Attention-deficit hyperactivity disorder, predominantly hyperactive type 04/04/2016 Endometrial disorder Gastroesophageal reflux disease without esophagitis 11/05/2017 7 months Past Surgical History: Procedure Laterality Date CHOLECYSTECTOMY 07/14/2019 TOTAL VAGINAL HYSTERECTOMY 05/23/2021 She still ovaries WISDOM TOOTH EXTRACTION Family History Problem Relation Name Age of Onset No Known Problems Father Anemia Mother No Known Problems Sister Social History Tobacco Use Smoking status: Never Smokeless tobacco: Never Substance Use Topics Alcohol use: No Objective There were no vitals taken for this visit. Physical Exam Constitutional: Appearance: Normal appearance. Comments: Comfortable at home HENT: Head: Normocephalic. Nose: Nose normal. Mouth/Throat: Mouth: Mucous membranes are moist. Eyes: Pupils: Pupils are equal, round, and reactive to light. Pulmonary: Effort: Pulmonary effort is normal. Musculoskeletal: General: Normal range of motion. Cervical back: Normal range of motion. Neurological: General: No focal deficit present. Mental Status: She is alert and oriented to person, place, and time. Psychiatric: Mood and Affect: Mood normal. Behavior: Behavior normal. Thought Content: Thought content normal. Judgment: Judgment normal. Assessment/Plan Diagnosis Plan 1. Attention-deficit hyperactivity disorder, predominantly hyperactive type 2. Anxiety 3. Class 2 obesity due to excess calories without serious comorbidity with body mass index (BMI) of 37.0 to 37.9 in adult 4. Migraine without aura and without status migrainosus, not intractable 5. Intrinsic eczema 6. Elevated triglycerides with high cholesterol 1) controlled to continue adderall 30 xr in am, 20 mg IR in afternoon (daily to every other day), notes mood/concentration/homelife much better, to CCT 2) using xanax ~ 1 time daily, working on decreasing dosing 3) continuing with diet changes, exercising over winter (trying for 2 miles jog) 4) managing with propranolol 60 mg daily, using imitrex ~ 1-2 times per month 5) r/b/a discussed, avoiding using kenalog more than a couple of days at a time to prevent skin changes, 6) has changed diet, losing weight documented in this encounter [facility] [employer] 04-04-2023 Telephone encounter Note [facility] 12/25/22 04/29/23 [facility] 04-04-2023 Miscellaneous Notes [facility] 12/25/22 04/29/23 documented in this encounter [facility] 03-11-2023 Telephone encounter Note [facility] 12/25/22 04/29/23 [facility] [employer] 03-11-2023 Miscellaneous Notes [facility] 12/25/22 04/29/23 documented in this encounter [facility] 02-11-2023 Telephone encounter Note RUBEN: 12/25/22 NOV: 04/29/23 [facility] 02-11-2023 Miscellaneous Notes RUBEN: 12/25/22 NOV: 04/29/23 documented in this encounter [facility] 01-11-2023 Telephone encounter Note RUBEN 12/25/22 NOV 04/29/23 [facility] 01-11-2023 Miscellaneous Notes RUBEN 12/25/22 NOV 04/29/23 documented in this encounter [facility] 12-20-2022 Telephone encounter Note RUBEN 09/18/22 NOV 12/25/22 [facility] 12-20-2022 Miscellaneous Notes RUBEN 09/18/22 NOV 12/25/22 documented in this encounter [facility] 10-26-2022 Telephone encounter Note RUBEN was 09/18/22. NOV is 12/25/22 [facility] 10-26-2022 Miscellaneous Notes RUBEN was 09/18/22. NOV is 12/25/22 documented in this encounter [facility] 09-27-2022 Telephone encounter Note Please let patient know 30 mg dose sent to her pharmacy, thank you [facility] 09-27-2022 Miscellaneous Notes Please let patient know 30 mg dose sent to her pharmacy, thank you RUBEN: 09/18/22 FOV: 12/25/22 Name of caller: Soha Contact phone number: [phone] Relationship to Patient: patient Provider: Emiliano [facility] Chief Complaint/Reason for Call: Patient called and would like her script for amphetamine-dextroamphetamine XR (Adderall XR) 15 MG 24 hr capsule sent to the [facility] in [place]. She said they dont have the 15 mg so she will need to have the 30 mg sent. Please advise Best time of day caller can be reached: any Patient advised that office/PCP has 24-48 business hours to return their call: Yes documented in this encounter [facility] 09-27-2022 Telephone encounter Note RUBEN: 09/18/22 FOV: 12/25/22 [facility] 09-27-2022 Telephone encounter Note Name of caller: Soha Contact phone number: [phone] Relationship to Patient: patient Provider: Emiliano [facility] Chief Complaint/Reason for Call: Patient called and would like her script for amphetamine-dextroamphetamine XR (Adderall XR) 15 MG 24 hr capsule sent to the [facility] in [place]. She said they dont have the 15 mg so she will need to have the 30 mg sent. Please advise Best time of day caller can be reached: any Patient advised that office/PCP has 24-48 business hours to return their call: Yes [facility] 09-25-2022 Miscellaneous Notes Last appointment 09/18/2022 , Next appointment is 12/25/2022 Last filled 09/24/2022 D# 30 R# 0 End Date 10/24/22 after 30 doses documented in this encounter [facility] 09-25-2022 Telephone encounter Note Last appointment 09/18/2022 , Next appointment is 12/25/2022 Last filled 09/24/2022 D# 30 R# 0 End Date 10/24/22 after 30 doses [facility] 09-24-2022 Telephone encounter Note Duplicate, do not refill. Sent to pharmacy: 09/24/22 [facility] 09-24-2022 Miscellaneous Notes Duplicate, do not refill. Sent to pharmacy: 09/24/22 documented in this encounter [facility] 08-27-2022 Telephone encounter Note RUBEN: 06/12/22 NOV: 09/18/22 [facility] 08-27-2022 Miscellaneous Notes RUBEN: 06/12/22 NOV: 09/18/22 documented in this encounter [facility] 07-29-2022 Telephone encounter Note Last appointment 06/12/22 Telemedicine , Next appointment is 09/18/2022 Last filled 07/02/22 #30 No refill Adderall XR Last filled 07/02/22 #30 No refill Adderall 20 mg Last filled 07/02/22 #30 No refill Xanax [facility] 07-29-2022 Miscellaneous Notes Last appointment 06/12/22 Telemedicine , Next appointment is 09/18/2022 Last filled 07/02/22 #30 No refill Adderall XR Last filled 07/02/22 #30 No refill Adderall 20 mg Last filled 07/02/22 #30 No refill Xanax documented in this encounter [facility] 07-02-2022 Telephone encounter Note RUBEN: 06/12/22 NOV: 09/18/22 [facility] 07-02-2022 Miscellaneous Notes RUBEN: 06/12/22 NOV: 09/18/22 documented in this encounter [facility] 06-12-2022 Note Patient was seen tod ay via Telehealth by agreement and consent in light of the current COVID-19 pandemic. I used the following Telehealth technology: Audio and video capabilities. Patient location: Patient Location: Home. This patient encounter is appropriate and reasonable under the circumstances given the patient's particular presentation at this time. The patient has been advised of the potential risks and limitations of this mode of treatment (including but not limited to the absence of in-person examination) and has agreed to be treated in a remote fashion in spite of them. Any and all of the patient's/patient's family's questions on this issue have been answered and I have made no promises or guarantees to the patient. The patient has also been advised to contact this office for worsening conditions or problems, and seek emergency medical treatment and/or call 911 if the patient deems either necessary. The patient stated that they are currently in the [facility]. If the patient is a minor, permission has been obtained by the parent or guardian for the patient to receive medical care at this visit. Subjective Patient ID: Soha Rollins is a 32 y.o. female who presents for ADHD (3 month ADHD ). HPI Stress stable, children/family, notes cousin was killed in [place] History of migraine, started at age 16, triggered from stress from ex, undergoing separation, worse with stress, weather changes. Headaches flared last week, improved this week. Using propranolol daily. Using prn tylenol/sleep/imitrex. Imitrex working well, needed 1 time last week, typically ~ 1 time per week History of endometriosis- prior hysterectomy Anxiety/depression - Needing to take xanax 1 time daily in the afternoon when mother adding stress, OARRS reviewed last refill 06-05-22. Has not been able to schedule with psychology due to not having childcare. ADHD - taking adderall 30 mg XR 6 am, will occasionally take 20 mg adderall in evening, denies side effects, feels working well, OARRS reviewed last refill 06-05-22 for both Obesity - working on exercising regularly, eating healthy Periodic eczematous flares, will use kenalog for 1-2 days and symptoms resolve for weeks, Review of Systems Constitutional: Negative for chills and fever. Patient Active Problem List Diagnosis Date Noted Migraine without aura and without status migrainosus, not intractable 03/01/2022 Gastroesophageal reflux disease without esophagitis 11/05/2017 Anxiety 04/04/2016 Attention-deficit hyperactivity disorder, predominantly hyperactive type 04/04/2016 Current Outpatient Medications Medication Sig Dispense Refill albuterol 108 (90 Base) MCG/ACT inhaler Inhale 2 puffs every 6 hours as needed. ALPRAZolam (Xanax) 0.5 MG tablet Take 1 tablet (0.5 mg) by mouth Daily as needed for anxiety. 30 tablet 0 amphetamine-dextroamphetamine (Adderall) 20 MG tablet Take 1 tablet (20 mg) by mouth daily. 30 tablet 0 amphetamine-dextroamphetamine XR (Adderall XR) 30 MG 24 hr capsule Take 1 capsule (30 mg) by mouth every morning. Do not crush or chew. 30 capsule 0 propranolol LA (Inderal LA) 60 MG 24 hr capsule Take 1 capsule (60 mg) by mouth daily. 90 capsule 3 SUMAtriptan (Imitrex) 100 MG tablet Take 1 tablet (100 mg) by mouth Once as needed for migraine for up to 1 dose. 9 tablet 2 triamcinolone (Kenalog) 0.1 % cream Apply to affected area 1-2 times daily as needed to affected area 1 week on 1 week off to avoid skin changes 15 g 1 No current facility-administered medications for this visit. Allergies: Patient has no known allergies. Past Medical History: Diagnosis Date Anxiety 04/04/2016 Attention-deficit hyperactivity disorder, predominantly hyperactive type 04/04/2016 Endometrial disorder Gastroesophageal reflux disease without esophagitis 11/05/2017 7 months Past Surgical History: Procedure Laterality Date CHOLECYSTECTOMY 07/14/2019 TOTAL VAGINAL HYSTERECTOMY 05/23/2021 She still ovaries WISDOM TOOTH EXTRACTION Family History Problem Relation Name Age of Onset No Known Problems Father Anemia Mother No Known Problems Sister Social History Tobacco Use Smoking status: Never Smokeless tobacco: Never Substance Use Topics Alcohol use: No Objective There were no vitals taken for this visit. Physical Exam Constitutional: Appearance: Normal appearance. Comments: Comfortable sitting at home HENT: Nose: Nose normal. Mouth/Throat: Mouth: Mucous membranes are moist. Eyes: Pupils: Pupils are equal, round, and reactive to light. Musculoskeletal: General: Normal range of motion. Cervical back: Normal range of motion. Neurological: Mental Status: She is alert and oriented to person, place, and time. Psychiatric: Mood and Affect: Mood normal. Behavior: Behavior normal. Thought Content: Thought content normal. Judgment: Judgment normal. Assessment/Plan (more content not included)... [facility] 06-12-2022 History of Presen t illness Narrative The patient's identity was verified by name and . Supervising provider for the virtual visit: Dr. Calhoun Patient was seen today via Telehealth by agreement and consent in light of the current COVID-19 pandemic. I used the following Telehealth technology: Audio and video capabilities. Patient location: Patient Location: Home. This patient encounter is appropriate and reasonable under the circumstances given the patient's particular presentation at this time. The patient has been advised of the potential risks and limitations of this mode of treatment (including but not limited to the absence of in-person examination) and has agreed to be treated in a remote fashion in spite of them. Any and all of the patient's/patient's family's questions on this issue have been answered and I have made no promises or guarantees to the patient. The patient has also been advised to contact this office for worsening conditions or problems, and seek emergency medical treatment and/or call 911 if the patient deems either necessary. The patient stated that they are currently in the [facility]. If the patient is a minor, permission has been obtained by the parent or guardian for the patient to receive medical care at this visit. Subjective Patient ID: Soha Rollins is a 32 y.o. female who presents for ADHD (3 month ADHD ). HPI Stress stable, children/family, notes cousin was killed in [place] History of migraine, started at age 16, triggered from stress from ex, undergoing separation, worse with stress, weather changes. Headaches flared last week, improved this week. Using propranolol daily. Using prn tylenol/sleep/imitrex. Imitrex working well, needed 1 time last week, typically ~ 1 time per week History of endometriosis- prior hysterectomy Anxiety/depression - Needing to take xanax 1 time daily in the afternoon when mother adding stress, OARRS reviewed last refill 06-05-22. Has not been able to schedule with psychology due to not having childcare. ADHD - taking adderall 30 mg XR 6 am, will occasionally take 20 mg adderall in evening, denies side effects, feels working well, OARRS reviewed last refill 06-05-22 for both Obesity - working on exercising regularly, eating healthy Periodic eczematous flares, will use kenalog for 1-2 days and symptoms resolve for weeks, Review of Systems Constitutional: Negative for chills and fever. Patient Active Problem List Diagnosis Date Noted Migraine without aura and without status migrainosus, not intractable 03/01/2022 Gastroesophageal reflux disease without esophagitis 11/05/2017 Anxiety 04/04/2016 Attention-deficit hyperactivity disorder, predominantly hyperactive type 04/04/2016 Current Outpatient Medications Medication Sig Dispense Refill albuterol 108 (90 Base) MCG/ACT inhaler Inhale 2 puffs every 6 hours as needed. ALPRAZolam (Xanax) 0.5 MG tablet Take 1 tablet (0.5 mg) by mouth Daily as needed for anxiety. 30 tablet 0 amphetamine-dextroamphetamine (Adderall) 20 MG tablet Take 1 tablet (20 mg) by mouth daily. 30 tablet 0 amphetamine-dextroamphetamine XR (Adderall XR) 30 MG 24 hr capsule Take 1 capsule (30 mg) by mouth every morning. Do not crush or chew. 30 capsule 0 propranolol LA (Inderal LA) 60 MG 24 hr capsule Take 1 capsule (60 mg) by mouth daily. 90 capsule 3 SUMAtriptan (Imitrex) 100 MG tablet Take 1 tablet (100 mg) by mouth Once as needed for migraine for up to 1 dose. 9 tablet 2 triamcinolone (Kenalog) 0.1 % cream Apply to affected area 1-2 times daily as needed to affected area 1 week on 1 week off to avoid skin changes 15 g 1 No current facility-administered medications for this visit. Allergies: Patient has no known allergies. Past Medical History: Diagnosis Date Anxiety 04/04/2016 Attention-deficit hyperactivity disorder, predominantly hyperactive type 04/04/2016 Endometrial disorder Gastroesophageal reflux disease without esophagitis 11/05/2017 7 months Past Surgical History: Procedure Laterality Date CHOLECYSTECTOMY 07/14/2019 TOTAL VAGINAL HYSTERECTOMY 05/23/2021 She still ovaries WISDOM TOOTH EXTRACTION Family History Problem Relation Name Age of Onset No Known Problems Father Anemia Mother No Known Problems Sister Social History Tobacco Use Smoking status: Never Smokeless tobacco: Never Substance Use Topics Alcohol use: No Objective There were no vitals taken for this visit. Physical Exam Constitutional: Appearance: Normal appearance. Comments: Comfortable sitting at home HENT: Nose: Nose normal. Mouth/Throat: Mouth: Mucous membranes are moist. Eyes: Pupils: Pupils are equal, round, and reactive to light. Musculoskeletal: General: Normal range of motion. Cervical back: Normal range of motion. Neurological: Mental Status: She is alert and oriented to person, place, and time. Psychiatric: Mood and Affect: Mood normal. Behavior: Behavior normal. Thought Content: Thought content normal. Judgment: Judgment normal. Assessment/Plan Diagnosis Plan 1. Attention-deficit hyperactivity disorder, predominantly hyperactive type 2. Anxiety 3. Class 2 obesity due to excess calories without serious comorbidity with body mass index (BMI) of 38.0 to 38.9 in adult 4. Migraine without aura and without status migrainosus, not intractable 5. Intrinsic eczema 6. Screening for cardiovascular condition 1) controlled to continue adderall 30 xr in am, 20 mg IR in afternoon (daily to every other day), notes mood/concentration/homelife much better, to CCT 2) using xanax ~ 1 time daily 3) planning on starting with personal coach,discussed GLP-1, looking into returning for fasting labs 4) managing with propranolol 60 mg daily, using imitrex ~ weekly 5) r/b/a discussed, avoiding using kenalog more than a couple of days at a time to prevent skin changes, 6) to return for fasting labs Wanting to hold on vaccine documented in this encounter [facility] 06-05-2022 Telephone encounter Note Resent rx [facility] 06-05-2022 Miscellaneous Notes Resent rx Name of caller: Zoë Contact phone number: [phone] Relationship to Patient: pharmacy Provider: Emiliano Practice: [facility] Chief Complaint/Reason for Call: caller states they need more specific direction for triamcinolone, wants to know how many times per day. Best time of day caller can be reached: any Patient advised that office/PCP has 24-48 business hours to return their call: No documented in this encounter [facility] 06-05-2022 Telephone encounter Note Name of caller: Zoë Contact phone number: [phone] Relationship to Patient: pharmacy Provider: Emiliano Practice: [facility] Chief Complaint/Reason for Call: caller states they need more specific direction for triamcinolone, wants to know how many times per day. Best time of day caller can be reached: any Patient advised that office/PCP has 24-48 business hours to return their call: No [facility] 09-08-2021 Note HNO ID: [id number] Author: Jeanne Xiao APRN.MARBLE [employer]ANER Service: ? Author Type: Nurse Practitioner Type: Progress Notes Filed: 09/08/2021 6:09 PM Note Text: This note was created using [employer]. Subjective Soha Rollins is a 31 year old female. HPI by patient: Soha is a 31 yo female presenting to the office with the complaint of long covid symptoms Started approximately 08/25. Was covid positive in early August Associated symptoms include SOB, barky cough. Denies fever or chills Vaccinated for influenza: no Covid Immunization Dates Overdue - COVID-19 VACCINE (1) Overdue - never done No completion, postpone, frequency change, or communication history exists for this topic. Personal history of Covid: yes Flu/RSV contacts: no Strep contacts: no Sick contacts: no Covid + contacts: no Travel in the last 14 days: no Smoking history/second hand smoke: no OTC cold snd flu, vicks cold and flu, mucinex No antibiotic use in the last 30 days. ALLERGIES Not on File No family history on file. Social History Tobacco Use Smoking status: Not on file Smokeless tobacco: Not on file Alcohol use: Not on file Drug use: Not on file Review of Systems Constitutional: Positive for fatigue. Negative for chills and fever. HENT: Positive for congestion and postnasal drip. Negative for ear pain, rhinorrhea and sore throat. Respiratory: Positive for cough and shortness of breath. Cardiovascular: Negative for chest pain. Allergic/Immunologic: Negative for immunocompromised state. Hematological: Negative for adenopathy. Objective There were no vitals taken for this visit. Physical Exam Vitals and nursing note reviewed. HENT: Right Ear: Tympanic membrane and ear canal normal. Left Ear: Tympanic membrane and ear canal normal. Nose: Nose normal. Mouth/Throat: Pharynx: Uvula midline. Cardiovascular: Rate and Rhythm: Normal rate and regular rhythm. Heart sounds: Normal heart sounds. Pulmonary: Effort: Pulmonary effort is normal. Breath sounds: Normal breath sounds. Lymphadenopathy: Cervical: No cervical adenopathy. Skin: General: Skin is warm and dry. Neurological: Mental Status: She is alert and oriented to person, place, and time. Assessment and Plan ASSESSMENT/PLAN: 1. Cough - ICD9: 786.2, ICD10: R05.9 - ALBUTEROL SULFATE HFA 90 MCG/ACTUATION AEROSOL INHALER - BENZONATATE 100 MG CAPSULE - GUAIFENESIN ER 600 MG TABLET, EXTENDED RELEASE 12 HR Jeanne Xiao APRN.CNP Medical Decision Making: Problems: Moderate: New problem with uncertain prognosis Data: Unique source(s) for external note(s) reviewed: 1 Risk: Moderate: Drug management Medical Decision Making Level: 4 - Moderate This patient encounter involved the screening or treatment of novel coronavirus infection (COVID-19). [facility] 09-08-2021 Instructions Jeanne Xiao APRN.CNP - 09/08/2021 6:08 PM EDT UPPER RESPIRATORY INFECTIONS Most cases are caused by viruses and most cases are mild, temporary, and harmless. Symptoms can last 2 to 3 weeks and can include: nasal congestion, sore throat, coughing, muscles aches, headaches, nausea, diarrhea, fatigue and fever. Now that you have been examined, if you are not feeling better within 2-3 weeks, please call back. In the meantime, please: 1. Drink plenty of fluids. 2. Get lots of rest. 3. Avoid dehydrants such as caffeine and alcohol. 4. Nasal saline is an effective decongestant and be used frequently throughout the day. 5. To loosen phlegm and help coughing, drink plenty of fluids and using a humidifier. 6. For sore throats, it is ok to use cough drops, throat sprays, or gargling warm salt water. 7. Always cover your mouth when you cough or sneeze, and wash your hands frequently. Avoid crowded areas like shopping centers, movies while you are sick so you don't bean picker machine operator a different virus, or infect others. 8. Avoid exposure to cigarettes or fumes. 9. Avoid irritants such as potpourri, dust, perfumes, scented candles and scented sprays 10. Air conditioning is an effective allergen and irritant avoidance strategy in the spring, summer and fall. 11. Honey is an effective cough suppressant. Try one tsp two to three times per day. The below information is from prescribersletter.Copyright Agent: Antibiotics Will rarely help an upper respiratory infections. Antibiotics lead to more resistant infections that are harder to treat. There is little to no benefit to taking antibiotics for most acute upper respiratory tract infections. documented in this encounter [facility] 09-08-2021 History of Presen t illness Narrative This note was created using [employer]. Subjective Soha Rollins is a 31 year old female. HPI by patient: Soha is a 31 yo female presenting to the office with the complaint of long covid symptoms Started approximately 08/25. Was covid positive in early August Associated symptoms include SOB, barky cough. Denies fever or chills Vaccinated for influenza: no Covid Immunization Dates Overdue - COVID-19 VACCINE (1) Overdue - never done No completion, postpone, frequency change, or communication history exists for this topic. Personal history of Covid: yes Flu/RSV contacts: no Strep contacts: no Sick contacts: no Covid + contacts: no Travel in the last 14 days: no Smoking history/second hand smoke: no OTC cold snd flu, vicks cold and flu, mucinex No antibiotic use in the last 30 days. ALLERGIES Not on File No family history on file. Social History Tobacco Use Smoking status: Not on file Smokeless tobacco: Not on file Alcohol use: Not on file Drug use: Not on file Review of Systems Constitutional: Positive for fatigue. Negative for chills and fever. HENT: Positive for congestion and postnasal drip. Negative for ear pain, rhinorrhea and sore throat. Respiratory: Positive for cough and shortness of breath. Cardiovascular: Negative for chest pain. Allergic/Immunologic: Negative for immunocompromised state. Hematological: Negative for adenopathy. Objective There were no vitals taken for this visit. Physical Exam Vitals and nursing note reviewed. HENT: Right Ear: Tympanic membrane and ear canal normal. Left Ear: Tympanic membrane and ear canal normal. Nose: Nose normal. Mouth/Throat: Pharynx: Uvula midline. Cardiovascular: Rate and Rhythm: Normal rate and regular rhythm. Heart sounds: Normal heart sounds. Pulmonary: Effort: Pulmonary effort is normal. Breath sounds: Normal breath sounds. Lymphadenopathy: Cervical: No cervical adenopathy. Skin: General: Skin is warm and dry. Neurological: Mental Status: She is alert and oriented to person, place, and time. Assessment and Plan ASSESSMENT/PLAN: 1. Cough - ICD9: 786.2, ICD10: R05.9 - ALBUTEROL SULFATE HFA 90 MCG/ACTUATION AEROSOL INHALER - BENZONATATE 100 MG CAPSULE - GUAIFENESIN ER 600 MG TABLET, EXTENDED RELEASE 12 HR Jeanne Xiao APRN.CNP Medical Decision Making: Problems: Moderate: New problem with uncertain prognosis Data: Unique source(s) for external note(s) reviewed: 1 Risk: Moderate: Drug management Medical Decision Making Level: 4 - Moderate This patient encounter involved the screening or treatment of novel coronavirus infection (COVID-19). documented in this encounter [facility] Diagnosis Dry skin dermatitis- Primary Contact dermatitis and other eczema due to other specified agent documented in this encounter [facility] note* Diagnosis Attention-deficit hyperactivity disorder, predominantly hyperactive type- Primary Anxiety Anxiety state, unspecified Class 2 obesity due to excess calories without serious comorbidity with body mass index (BMI) of 38.0 to 38.9 in adult Migraine without aura and without status migrainosus, not intractable Intrinsic eczema Screening for cardiovascular condition Screening for other and unspecified cardiovascular conditions documented in this encounter [facility] note* Diagnosis Anxiety Anxiety state, unspecified Migraine without aura and without status migrainosus, not intractable Attention-deficit hyperactivity disorder, predominantly hyperactive type documented in this encounter [facility] note* Diagnosis Anxiety Anxiety state, unspecified Attention-deficit hyperactivity disorder, predominantly hyperactive type documented in this encounter [facility] note* Diagnosis Anxiety Anxiety state, unspecified Attention-deficit hyperactivity disorder, predominantly hyperactive type documented in this encounter [facility] note* Diagnosis Attention-deficit hyperactivity disorder, predominantly hyperactive type documented in this encounter [facility] note* Diagnosis Attention-deficit hyperactivity disorder, predominantly hyperactive type documented in this encounter [facility] note* Diagnosis Migraine without aura and without status migrainosus, not intractable documented in this encounter [facility] note* Diagnosis Migraine without aura and without status migrainosus, not intractable Anxiety Anxiety state, unspecified Attention-deficit hyperactivity disorder, predominantly hyperactive type documented in this encounter [facility] note* Diagnosis Migraine without aura and without status migrainosus, not intractable Anxiety Anxiety state, unspecified Attention-deficit hyperactivity disorder, predominantly hyperactive type documented in this encounter [facility] note* Diagnosis Anxiety Anxiety state, unspecified Migraine without aura and without status migrainosus, not intractable Attention-deficit hyperactivity disorder, predominantly hyperactive type documented in this encounter [facility] note* Diagnosis Attention-deficit hyperactivity disorder, predominantly hyperactive type- Primary Anxiety Anxiety state, unspecified Class 2 obesity due to excess calories without serious comorbidity with body mass index (BMI) of 37.0 to 37.9 in adult Migraine without aura and without status migrainosus, not intractable Intrinsic eczema Elevated triglycerides with high cholesterol Mixed hyperlipidemia documented in this encounter [facility] Summary Purpose Family History No Family History Records FoundNo Family History Records Found Advance Directives No Advanced Directives Records FoundNo Advanced Directives Records Found Additional Source Comments Source Comments (unrecognize d section and content) In the event this informatio n is protected by the Federal Confidentiality of Alcohol and Drug Abuse Patient Records regulations: The Federal rules restrict any use of the information to criminally investigate or prosecute any alcohol or drug abuse patient.[facility] Reason for Visit (unrecogniz ed section and content) Reason Onset Date Comments Medication Problem 06/05/2022 Reason Comments ADHD 3 month ADHD Reason Onset Date Comments Med Refill 07/02/2022 Reason Onset Date Comments Med Refill 07/29/2022 Reason Onset Date Comments Med Refill 08/27/2022 Reason Onset Date Comments Med Refill 09/24/2022 Reason Onset Date Comments Med Refill 10/26/2022 Reason Onset Date Comments Medication Problem 09/27/2022 Reason Onset Date Comments Med Refill 12/19/2022 Reason Onset Date Comments Med Refill 01/11/2023 Reason Onset Date Comments Med Refill 02/10/2023 Reason Onset Date Comments Med Refill 03/10/2023 Reason Onset Date Comments Med Refill 04/04/2023 Reason Comments ADHD INFORMATION SOURCE (unrecogn ized section and content) DATE CREATED AUTHOR AUTHOR'S ORGANIZ ATION 04/30/2023 [facility] Care Teams (unrecognized sec tion and content) 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 Relationship Specialty Start Date End Date Tanvir Calhoun MD [address], [place] [id number] PCP - General 10/03/16 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 Relationship Specialty Start Date End Date Tanvir Calhoun MD [address] [place] [address] PCP - General 10/03/16 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 Relationship Specialty Start Date End Date Tanvir Calhoun MD [address] [facility] [place] [address] PCP - General 10/03/16 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 Relationship Specialty Start Date End Date Tanvir Calhoun MD [address] [place] [address] PCP - General 10/03/16 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 Relationship Specialty Start Date End Date Tanvir Calhoun MD [address] [facility] [place] [id number] PCP - General 10/03/16 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 Relationship Specialty Start Date End Date Tanvir Calhoun MD [address] [facility] [place] [id number] PCP - General 10/03/16 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 Relationship Specialty Start Date End Date [facility] [address] [facility] [place] [place] [id number] PCP - General 10/03/16 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 Relationship Specialty Start Date End Date Tanvir Calhoun MD [address] [facility] [place] [id number] PCP - General 10/03/16 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 This clinical summary was aggregated from multiple sources. Caution should be exercised in using it in the provision of clinical care. This summary normalizes information from multiple sources, and as a consequence, information in this document may materially change the coding, format and clinical context of patient data. In addition, data may be omitted in some cases. CLINICAL DECISIONS SHOULD BE BASED ON THE PRIMARY CLINICAL RECORDS. [facility]. provides no warranty or guarantee of the accuracy or completeness of information in this document.
[2023-04-30 22:08] VITALS: PULSE 89; RESP 20; O2SAT 96
[2023-04-30 22:09] VITALS: PULSE 86; RESP 20; O2SAT 96
--- NOTE | 2023-04-30 22:43 | ED.VIS.DENTA ---
HPI History of Present Illness Chief Complaint: Dental Narrative Narrative: 33-year-old female presenting with dental pain. She states has been on and off for the last couple of months to the right upper maxillary teeth. She denies any trauma. She states currently she has an appointment to see a dentist sometime this week however she is having increasing pain. She has some swelling in her gums. No drainage or discharge. No trouble swallowing or breathing. No fevers or chills. PFSH PFSH Medical History Abnormal uterine bleeding ADD (attention deficit disorder) Anemia Anxiety Depression Dysmenorrhea Endometriosis GERD (gastroesophageal reflux disease) Heartburn Migraine headache Non-smoker Sciatic nerve pain Wears glasses Home Medications dextroamphetamine-amphetamine 20 mg tablet (Adderall) 20 mg PO 1500 ADD 09/02/18 [History Last Taken 04/05/19 13:00] alprazolam 0.5 mg tablet 0.5 mg PO QHS 07/18/19 [History Last Taken Unknown] dextroamphetamine-amphetamine ER 30 mg 24hr capsule,extend release (Adderall XR) 30 mg PO DAILY 03/30/21 [History Last Taken Unknown] sumatriptan succinate 25 mg tablet (Imitrex) 25 mg PO ONCE 03/30/21 [History Last Taken Unknown] venlafaxine 75 mg capsule,extended release 24 hr (Effexor XR) 75 mg PO DAILY #30 caps 09/21/22 [Rx Last Taken Unknown] amoxicillin 875 mg-potassium clavulanate 125 mg tablet 1 tab PO BID #20 tabs 04/30/23 [Rx Last Taken Unknown] Allergy/AdvReac Type Severity Reaction Status Date / Time No Known Allergies Allergy Verified 04/30/23 19:41 Family History Mother Diabetes Hypertension Father Hypertension Surgical History H/O wisdom tooth extraction History of cholecystectomy S/P vaginal hysterectomy Status post cholecystectomy Social History adopted: No household members: family housing: house number of children: 2 current occupational status: unemployed current occupational exposures/hazards: No pets and animals: No history of recent travel: No sexually active: Yes Smoking Status: Never smoker second hand exposure: No alcohol intake: current alcohol intake frequency: a few times a week substance use type: does not use what type of physical activity do you participate in: walking and aerobics frequency: 5-6 times per week seatbelt use: always do you feel safe at home: Yes additional social history: [employer] ([employer] [employer] [facility] [employer]) ROS ROS ED Constitutional Constitutional ED: Denies chills, fever(s) or sweats Eyes Eyes: Denies blurry vision or change in vision ENT ENT ED: Reports other Details: Dental pain ; Denies ear pain or sore throat Cardiovascular Cardiovascular: Denies chest pain, palpitations or racing heartbeat Respiratory/Chest Respiratory/Chest: Denies cough, dyspnea or sputum Gastrointestinal Gastrointestinal: Denies abdominal pain, constipation, diarrhea, nausea or vomiting Genitourinary Genitourinary ED: Denies dysuria, hematuria or urinary frequency Musculoskeletal Musculoskeletal: Denies arthralgias, myalgias or neck pain Integumentary Denies abscess, Abrasions or rash Neurologic Neurologic: Denies headache(s), paresthesias or weakness Psychiatric Psychiatric: Denies anxiety, depression, suicidal ideation or suicidal thoughts Endocrine Endocrinology: Denies polydipsia or polyuria EXAM Physical Exam Const Vital Signs: 04/30/23 19:42 04/30/23 22:08 04/30/23 22:09 Temperature 96.8 F L Temperature Source Temporal Pulse Rate 99 89 86 Respiratory Rate 16 20 H 20 H Blood Pressure 153/104 H Blood Pressure Mean 120 Pulse Ox 100 96 96 Oxygen Delivery Method Room Air Room Air Positive well nourished General Appearance ED: NAD HEENT Mouth ED: Yes oral and palatal mucosa normal, Yes lips normal and Yes tongue normal Mouth: oral and palatal mucosa normal, lips normal and tongue normal Teeth and Gingiva: abnormal tooth and associated gingiva Positive for tenderness (Tooth #3) Eyes PERRL and EOMs intact bilaterally Resp normal respiratory effort Cardio regular rate and regular rhythm Neuro oriented x3 and CN's II-XII intact bilaterally Sensorium / Orientation: alert Psych mental status grossly normal MDM MDM MDM Narrative Medical decision making narrative: 33-year-old female present with dental pain. She has no red flag signs or symptoms. No signs of [place] angina. Improved with swallowing or breathing. Patient will be started on Augmentin. First dose given in the ED. She was given dental referral sheet and she has dental professional already signed up for. Discharged home in stable condition. Impression: 1. Dental pain 2. Dental infection Lab Data Attestation: I reviewed the patient's lab results. Discharge Plan Triage Chief Complaint: Dental ED Provider: Scotty Donohue Dx/Rx/DC Orders Instructions: ED Dental Pain, ED Dental Cavity Prescriptions: New amoxicillin-pot clavulanate 875-125 mg tablet 1 tab PO BID Qty: 20 0RF No Action dextroamphetamine-amphetamine [Adderall] 20 mg tablet 20 mg PO 1500 dextroamphetamine-amphetamine [Adderall XR] 30 mg capsule,extended release 24hr 30 mg PO DAILY sumatriptan succinate [Imitrex] 25 mg tablet 25 mg PO ONCE venlafaxine [Effexor XR] 75 mg capsule,extended release 24hr 75 mg PO DAILY Qty: 30 12RF alprazolam 0.5 MG tablet 0.5 mg PO QHS Primary Care Provider: JACQUIE CALHOUN Referrals: JACQUIE CALHOUN [Other] Disposition Disposition: Home, Self Care Discharge Date/Time: 04/30/23 22:10
== END 2023-04-30 22:10 | disposition home or self-care (01) ==
PROVIDERS: Emergency Provider Student in an Organized Health Care Education/Training Program; Visit Provider Student in an Organized Health Care Education/Training Program
DX: K04.7 Periapical abscess without sinus (principal); K21.9 Gastro-esophageal reflux disease without esophagitis
CPT/HCPCS: 99282